=== PATIENT | male | born 1965 | race Caucasian/White ===

== ENCOUNTER → 2019-11-25 14:39 | Outpatient (BNVA) | payer MEDICARE, MEDICAID, SELFPAY | PROVIDERS: Family Provider Family Medicine; PCP Family Medicine; Visit Provider Nurse Practitioner Psychiatric/Mental Health | DX: F31.74 Bipolar disorder, in full remission, most recent episode manic (principal); F15.21 Other stimulant dependence, in remission | CPT/HCPCS: 99214; 99215 ==

== ENCOUNTER → 2020-01-23 08:21 | Outpatient (BNVA) | payer MEDICARE, MEDICAID, SELFPAY | PROVIDERS: Family Provider Family Medicine; PCP Family Medicine; Visit Provider Specialist | DX: G43.711 Chronic migraine without aura, intractable, with status migrainosus (principal); G40.309 Generalized idiopathic epilepsy and epileptic syndromes, not intractable, without status epilepticus; Z87.891 Personal history of nicotine dependence | CPT/HCPCS: 64615; 99213; J0585 ==

== ENCOUNTER → 2020-02-17 08:15 | Outpatient (BNVA) | payer MEDICARE, MEDICAID, SELFPAY | PROVIDERS: Family Provider Family Medicine; PCP Family Medicine; Visit Provider Nurse Practitioner Psychiatric/Mental Health | DX: G40.309 Generalized idiopathic epilepsy and epileptic syndromes, not intractable, without status epilepticus (principal); F31.74 Bipolar disorder, in full remission, most recent episode manic | CPT/HCPCS: 99213 ==

== ENCOUNTER → 2020-04-13 07:55 | Outpatient (BNVA) | payer MEDICARE, MEDICAID, SELFPAY | PROVIDERS: Family Provider Family Medicine; PCP Family Medicine; Visit Provider Nurse Practitioner Psychiatric/Mental Health | DX: F31.74 Bipolar disorder, in full remission, most recent episode manic (principal); G40.309 Generalized idiopathic epilepsy and epileptic syndromes, not intractable, without status epilepticus | CPT/HCPCS: 99212 ==

== ENCOUNTER → 2020-04-16 07:40 | Outpatient (BNVA) | payer MEDICARE, MEDICAID, SELFPAY | PROVIDERS: Family Provider Family Medicine; PCP Family Medicine; Visit Provider Specialist | DX: G43.711 Chronic migraine without aura, intractable, with status migrainosus (principal); G40.309 Generalized idiopathic epilepsy and epileptic syndromes, not intractable, without status epilepticus; G25.0 Essential tremor; Z87.891 Personal history of nicotine dependence | CPT/HCPCS: 36415; 64615; 80164; 99214; J0585 ==

== ENCOUNTER 2020-04-16 09:05 | Outpatient (CLI) | payer MEDICARE, MEDICAID, SELFPAY ==
[2020-04-16 10:12] LABS: Valproic Acid Level 90.8 mcg/mL (50-100)
== END 2020-04-16 09:06 | disposition home or self-care (01) ==
LOC: LAB 09:10
PROVIDERS: PCP Family Medicine; Visit Provider Specialist
DX: G40.309 Generalized idiopathic epilepsy and epileptic syndromes, not intractable, without status epilepticus (principal)
CPT/HCPCS: 36415; 80164

== ENCOUNTER → 2020-06-15 08:43 | Outpatient (BNVA) | payer MEDICARE, MEDICAID, SELFPAY | PROVIDERS: PCP Family Medicine; Visit Provider Nurse Practitioner Psychiatric/Mental Health | DX: F31.74 Bipolar disorder, in full remission, most recent episode manic (principal); G40.309 Generalized idiopathic epilepsy and epileptic syndromes, not intractable, without status epilepticus; G25.0 Essential tremor | CPT/HCPCS: 99212 ==

== ENCOUNTER → 2020-09-14 07:45 | Outpatient (BNVA) | payer MEDICARE, MEDICAID, SELFPAY | PROVIDERS: PCP Family Medicine; Visit Provider Nurse Practitioner Psychiatric/Mental Health | DX: F31.74 Bipolar disorder, in full remission, most recent episode manic (principal); G25.0 Essential tremor; G40.309 Generalized idiopathic epilepsy and epileptic syndromes, not intractable, without status epilepticus | CPT/HCPCS: 99212 ==

== ENCOUNTER → 2020-12-15 09:58 | Outpatient (BNVA) | payer MEDICARE, MEDICAID, SELFPAY | PROVIDERS: PCP Family Medicine; Visit Provider Nurse Practitioner Psychiatric/Mental Health | DX: F31.74 Bipolar disorder, in full remission, most recent episode manic (principal); G25.0 Essential tremor; G40.309 Generalized idiopathic epilepsy and epileptic syndromes, not intractable, without status epilepticus; Z79.899 Other long term (current) drug therapy | CPT/HCPCS: 99213 ==

== ENCOUNTER → 2020-12-22 14:06 | Outpatient (BNVA) | payer MEDICARE, MEDICAID, SELFPAY | PROVIDERS: PCP Family Medicine; Visit Provider Nurse Practitioner Psychiatric/Mental Health | DX: Z79.899 Other long term (current) drug therapy (principal) | CPT/HCPCS: 80061; 83036 ==

== ENCOUNTER → 2021-03-09 08:34 | Outpatient (BNVA) | payer MEDICARE, MEDICAID, SELFPAY | PROVIDERS: PCP Family Medicine; Visit Provider Nurse Practitioner Psychiatric/Mental Health | DX: F31.74 Bipolar disorder, in full remission, most recent episode manic (principal); G25.0 Essential tremor; G40.309 Generalized idiopathic epilepsy and epileptic syndromes, not intractable, without status epilepticus | CPT/HCPCS: 99213 ==

== ENCOUNTER → 2021-06-01 07:23 | Outpatient (BNVA) | payer MEDICARE, MEDICAID, SELFPAY | PROVIDERS: PCP Family Medicine; Visit Provider Nurse Practitioner Psychiatric/Mental Health | DX: F31.74 Bipolar disorder, in full remission, most recent episode manic (principal); G25.0 Essential tremor; G40.309 Generalized idiopathic epilepsy and epileptic syndromes, not intractable, without status epilepticus | CPT/HCPCS: 99213 ==

== ENCOUNTER → 2021-06-21 11:56 | Outpatient (BNVA) | payer MEDICARE, MEDICAID, SELFPAY | PROVIDERS: PCP Family Medicine; Visit Provider Specialist | DX: G40.309 Generalized idiopathic epilepsy and epileptic syndromes, not intractable, without status epilepticus (principal); F20.9 Schizophrenia, unspecified; R25.1 Tremor, unspecified | CPT/HCPCS: 99214 ==

== ENCOUNTER → 2021-08-26 07:09 | Outpatient (BNVA) | payer MEDICARE, MEDICAID, SELFPAY | PROVIDERS: PCP Family Medicine; Visit Provider Nurse Practitioner Psychiatric/Mental Health | DX: F31.74 Bipolar disorder, in full remission, most recent episode manic (principal); G25.0 Essential tremor; G40.309 Generalized idiopathic epilepsy and epileptic syndromes, not intractable, without status epilepticus; Z79.899 Other long term (current) drug therapy | CPT/HCPCS: 99213 ==

== ENCOUNTER → 2021-11-22 14:31 | Outpatient (BNVA) | payer MEDICARE, MEDICAID, SELFPAY | PROVIDERS: PCP Family Medicine; Visit Provider Nurse Practitioner Psychiatric/Mental Health | DX: F31.74 Bipolar disorder, in full remission, most recent episode manic (principal); G25.0 Essential tremor; G40.309 Generalized idiopathic epilepsy and epileptic syndromes, not intractable, without status epilepticus | CPT/HCPCS: 99213 ==

== ENCOUNTER 2021-11-24 15:16 | Emergency (ER) | payer MEDICARE, MEDICAID, SELFPAY ==
[2021-11-24 15:34] VITALS: BP 200/111; PULSE 85; RESP 18; TEMP 36.9; O2SAT 98; BMI 36.3
[2021-11-24 15:56] VITALS: BP 200/111
[2021-11-24] MEDS: cloNIDine 0.1 mg Tablet 0.2 MG PO (15:56)
--- NOTE | 2021-11-24 16:03 | ED_ITS ---
Documented by User: KIRSTEN Tesfaye 11/25/21 09:34 HPI - General Adult General: Chief complaint: General Medical Stated complaint: HIGH BP Time Seen by Provider: 11/24/21 15:55 History of Present Illness: HPI narrative: he presents with high blood pressure readings. Patient has not been to his primary in a while he does take metoprolol for blood pressure control. Patient's had high blood pressure for the last couple years without any change in medication. Patient denies any current symptoms besides high blood pressure readings. Decided come to ER today and see about getting blood pressure under control. Onset (ago): year(s) Associated symptoms: Reports no associated symptoms; Deny chest pain, dyspnea, headache(s), nausea, rash or vomiting Review of Systems Const: Denies: fever(s), chills or body aches Eyes: Denies: change in vision or blurry vision ENMT: Denies: throat pain or nasal congestion Card: Denies: chest pain or dyspnea on exertion Resp: Denies: dyspnea, productive cough or non-productive cough GI: Denies: abdominal pain, nausea or vomiting : Denies: difficulty urinating Musc: Denies: extremity pain Skin/Breast: Denies: rash Neuro: Denies: headache(s) Psych: Denies: anxiety or depression Hever/Lymph: Denies: easy bruising PFS ED PFSH: Medical History (Updated 11/24/21 @ 16:06 by KIRSTEN Tesfaye) Psychiatric care Social History Smoking and tobacco status: never smoked Quit status (tobacco): has quit using tobacco Year quit tobacco: 10 years Second hand smoke exposure: No Smoking risk assessment/counseling performed?: No Reason smoking risk assessment not done: other Physical Exam Const: COMMON NORMALS: no acute distress, average body habitus and patient oriented x3 HENMT: COMMON NORMALS: normocephalic HEAD & SCALP: normal to inspection and normocephalic FACE & SINUS: normal facial exam Eye: COMMON NORMALS: conjunctivae normal GENERAL EYE: appearance normal, both eyes and all related structures CONJUNCTIVA: Yes conjunctivae normal Neck/C-Spine: COMMON NORMALS: no JVD Chest: COMMONS NORMALS: normal inspection of the chest Resp: COMMON NORMALS: normal respiratory effort and clear to auscultation bilaterally AUSCULTATION: clear to auscultation bilaterally Cardio: COMMON NORMALS: no JVD, regular rate and regular rhythm RATE: regular rate RHYTHM: regular rhythm GI: COMMON NORMALS: Normal to inspection, nondistended, normoactive bowel sounds present Extremity: COMMON NORMALS: normal to inspection and full ROM Neuro: COMMON NORMALS: patient oriented x3 Course Vital Signs: Vital signs: Vital Signs Temperature 98.7 F 11/24/21 17:57 Pulse Rate 81 11/24/21 17:57 Respiratory Rate 18 11/24/21 17:57 Blood Pressure 154/99 11/24/21 17:57 Pulse Oximetry 99 11/24/21 17:57 MDM - General Adult MDM Narrative: Medical decision making narrative: Patient presents with hypertension. Patient has been having high blood pressure and readings for the last couple years. There is been no change in his dosage of his medication. Patient name familiar with what he took but it happens to be metoprolol. He also takes propanolol for his migraines. Patient was given clonidine here in the ER and had good response. Patient was prescribed Micardis and asked to follow-up with his primary care provider also record his readings for couple weeks and present those to primary care provider return here if any worsening symptoms. Discharge Plan Discharge Patient Disposition: Home Clinical Impression: Hypertension Qualifiers: Hypertension type: primary hypertension Qualified Code(s): I10 - Essential (primary) hypertension Condition: Stable Prescriptions: New Micardis 40 mg tablet 40 mg PO DAILY Qty: 20 RF: 0 No Action metoprolol tartrate 50 mg tablet 50 mg PO BID RF: 0 simvastatin 20 mg tablet 20 mg PO .QHS RF: 0 albuterol sulfate 90 mcg/actuation aero powdr breath act w/sensor 2 inh inhalation QID RF: 0 Eliquis 5 mg tablet 5 mg PO BID RF: 0 fluticasone propionate 110 mcg/actuation HFA aerosol inhaler 2 puff inhalation BID RF: 0 pantoprazole 40 mg tablet,delayed release (DR/EC) 40 mg PO DAILY RF: 0 divalproex 500 mg tablet,delayed release (DR/EC) See Rx Instructions .ROUTE .COMPLEX Qty: 270 RF: 3 primidone 50 mg tablet 50 mg PO BID Qty: 180 RF: 3 olanzapine [Zyprexa] 10 mg tablet 10 mg PO .qhs Qty: 30 RF: 2 olanzapine 20 mg tablet 20 mg PO .q hs Qty: 30 RF: 2 eszopiclone [Lunesta] 1 mg tablet 1 mg PO .HS PRN (Reason: insomnia) Qty: 30 RF: 2 sumatriptan succinate 100 mg tablet 100 mg PO Q2H PRN (Reason: migraine headache) Qty: 9 RF: 4 zonisamide 100 mg capsule See Rx Instructions .ROUTE .COMPLEX Qty: 120 RF: 3 trazodone 100 mg tablet 200 mg PO .HS PRN (Reason: insomnia) Qty: 60 RF: 2 Discharge Orders: Discharge ED (Routine); Ordered 11/24/21 Ordered By: Howard Oviedo Referrals: Zoie Steele FNP [Primary Care Provider] - Discharge Diet: Usual diet Discharge Activity: Resume usual activity Patient Instructions: Chronic Hypertension (ED) Activity Restrictions/Additional Instructions: Follow-up with medical provider as directed. Take medications as prescribed. Return to the ER or your medical provider if condition worsens. Please read and understand discharge instructions. If any questions ask please. Check blood pressure twice a day write those readings down and then follow-up with KIRSTEN Long in a couple weeks and present those readings to her for evaluation of current medications and if she wants to continue prescription or make a change. Coding Level of Care Code ED Environmental Health Safety Manager for Chg Fwd Exam Comprehensive Documented by User: Ammon Broderick DO 11/27/21 06:20 HPI - General Adult General: Chief complaint: General Medical Stated complaint: HIGH BP Time Seen by Provider: 11/24/21 15:55 PFSH ED PFSH: Medical History (Updated 11/24/21 @ 16:06 by KIRSTEN Tesfaye) Psychiatric care Social History Smoking and tobacco status: never smoked Quit status (tobacco): has quit using tobacco Year quit tobacco: 10 years Second hand smoke exposure: No Smoking risk assessment/counseling performed?: No Reason smoking risk assessment not done: other Course Vital Signs: Vital signs: Vital Signs Temperature 98.7 F 11/24/21 17:57 Pulse Rate 81 11/24/21 17:57 Respiratory Rate 18 11/24/21 17:57 Blood Pressure 154/99 11/24/21 17:57 Pulse Oximetry 99 11/24/21 17:57 MDM - General Adult MDM Narrative: Medical decision making narrative: Chart reviewed and patient discussed with midlevel. Agree with assessment and plan. Discharge Plan Discharge Patient Disposition: Home Clinical Impression: Hypertension Qualifiers: Hypertension type: primary hypertension Qualified Code(s): I10 - Essential (primary) hypertension Condition: Stable Prescriptions: New Micardis 40 mg tablet 40 mg PO DAILY Qty: 20 RF: 0 No Action metoprolol tartrate 50 mg tablet 50 mg PO BID RF: 0 simvastatin 20 mg tablet 20 mg PO .QHS RF: 0 albuterol sulfate 90 mcg/actuation aero powdr breath act w/sensor 2 inh inhalation QID RF: 0 Eliquis 5 mg tablet 5 mg PO BID RF: 0 fluticasone propionate 110 mcg/actuation HFA aerosol inhaler 2 puff inhalation BID RF: 0 pantoprazole 40 mg tablet,delayed release (DR/EC) 40 mg PO DAILY RF: 0 divalproex 500 mg tablet,delayed release (DR/EC) See Rx Instructions .ROUTE .COMPLEX Qty: 270 RF: 3 primidone 50 mg tablet 50 mg PO BID Qty: 180 RF: 3 olanzapine [Zyprexa] 10 mg tablet 10 mg PO .qhs Qty: 30 RF: 2 olanzapine 20 mg tablet 20 mg PO .q hs Qty: 30 RF: 2 eszopiclone [Lunesta] 1 mg tablet 1 mg PO .HS PRN (Reason: insomnia) Qty: 30 RF: 2 sumatriptan succinate 100 mg tablet 100 mg PO Q2H PRN (Reason: migraine headache) Qty: 9 RF: 4 zonisamide 100 mg capsule See Rx Instructions .ROUTE .COMPLEX Qty: 120 RF: 3 trazodone 100 mg tablet 200 mg PO .HS PRN (Reason: insomnia) Qty: 60 RF: 2 Discharge Orders: Discharge ED (Routine); Ordered 11/24/21 Ordered By: Howard Oviedo Referrals: Zoie Steele FNP [Primary Care Provider] - Discharge Diet: Usual diet Discharge Activity: Resume usual activity Patient Instructions: Chronic Hypertension (ED) Activity Restrictions/Additional Instructions: Follow-up with medical provider as directed. Take medications as prescribed. Return to the ER or your medical provider if condition worsens. Please read and understand discharge instructions. If any questions ask please. Check blood pressure twice a day write those readings down and then follow-up with KIRSTEN Long in a couple weeks and present those readings to her for evaluation of current medications and if she wants to continue prescription or make a change. Coding Level of Care Code ED Environmental Health Safety Manager for Chg Fwd Exam Comprehensive
[2021-11-24 16:29] VITALS: BP 157/97; PULSE 80; RESP 18; O2SAT 98
[2021-11-24 17:57] VITALS: BP 154/99; PULSE 81; RESP 18; TEMP 37.1; O2SAT 99
== END 2021-11-24 18:00 | disposition home or self-care (01) ==
PROVIDERS: Emergency Provider Nurse Practitioner Family; PCP Nurse Practitioner Family
DX: I10 Essential (primary) hypertension (principal); Z79.01 Long term (current) use of anticoagulants; Z87.891 Personal history of nicotine dependence
CPT/HCPCS: 99283

== ENCOUNTER → 2021-12-20 09:53 | Outpatient (BNVA) | payer MEDICARE, MEDICAID, SELFPAY | PROVIDERS: PCP Nurse Practitioner Family; Visit Provider Specialist | DX: G25.0 Essential tremor (principal); G40.309 Generalized idiopathic epilepsy and epileptic syndromes, not intractable, without status epilepticus; F31.74 Bipolar disorder, in full remission, most recent episode manic; I10 Essential (primary) hypertension | CPT/HCPCS: 99213; 99214 ==

== ENCOUNTER → 2022-02-14 14:15 | Outpatient (BNVA) | payer MEDICARE, MEDICAID, SELFPAY | PROVIDERS: PCP Nurse Practitioner Family; Visit Provider Nurse Practitioner Psychiatric/Mental Health | DX: F31.74 Bipolar disorder, in full remission, most recent episode manic (principal); G25.0 Essential tremor; G40.309 Generalized idiopathic epilepsy and epileptic syndromes, not intractable, without status epilepticus | CPT/HCPCS: 99213 ==

== ENCOUNTER → 2022-06-13 08:28 | Outpatient (BNVA) | payer MEDICARE, MEDICAID, SELFPAY | PROVIDERS: PCP Nurse Practitioner Family; Visit Provider Specialist | DX: I10 Essential (primary) hypertension (principal); J45.909 Unspecified asthma, uncomplicated; F15.11 Other stimulant abuse, in remission; G40.309 Generalized idiopathic epilepsy and epileptic syndromes, not intractable, without status epilepticus; G25.0 Essential tremor | CPT/HCPCS: 99213; 99214 ==

== ENCOUNTER → 2022-09-13 14:41 | Outpatient (BNVA) | payer MEDICARE, MEDICAID, OTHER, SELFPAY | PROVIDERS: PCP Nurse Practitioner Family; Visit Provider Nurse Practitioner Psychiatric/Mental Health | DX: Z79.899 Other long term (current) drug therapy (principal) | CPT/HCPCS: 80053; 80061; 83036 ==

== ENCOUNTER 2023-05-25 14:28 | Inpatient (IN) | payer MEDICARE, MEDICAID, SELFPAY ==
[2023-05-25] VITALS (9 sets, daily range): BP systolic 121–188; BP diastolic 72–100; PULSE 85–105; RESP 16–30; TEMP 37.7–39.5; O2SAT 90–98
[2023-05-25 14:55] LABS: Glucose Point of Care 117 mg/dL (70-110)
--- NOTE | 2023-05-25 15:00 | W.ED.WEAKNES ---
HPI - Weakness General: Chief complaint: Weakness Stated complaint: heat exhaustion Time Seen by Provider: 05/25/23 14:31 History of Present Illness: 57 years old male with history of mental sedation and chronic resting tremor was brought into emergency room by EMS because of weakness. According to the patient dad, patient went outside the house for about 15 to 20 minutes and upon returning back into the house he became very diaphoretic and complained of weakness patient denies any cough, headache, neck pain, abdominal pain, nausea or vomiting at this time. No recent foreign travel or sick contacts. Upon present emergency room patient was found to be tachycardic and febrile. Associated symptoms: Reports diaphoresis; Denies dysuria Review of Systems General: Reports: 10 or more systems reviewed and unremarkable except in HPI and below Const: Reports: fatigue and diaphoresis Resp: Denies: dyspnea, productive cough, non-productive cough, wheezing, stridor, pain on inspiration or change in phlegm color : Denies: flank pain, difficulty urinating, dysuria, urinary frequency, urinary urgency, urinary hesitancy, urinary dribbling, difficulty starting urination or change in urine stream Musc: Denies: neck pain, back pain, extremity pain, extremity swelling, joint pain, joint swelling, joint redness or joint warmth PFSH ED PFSH: Medical History Psychiatric care Social History (Updated 09/13/22 @ 13:45 by Erica Hayden) Smoking and tobacco status: never smoked Quit status (tobacco): has quit using tobacco Year quit tobacco: 10 years Second hand smoke exposure: No Smoking risk assessment/counseling performed?: No Reason smoking risk assessment not done: other Alcohol intake: never Desire information about alcohol rehabilitation?: No Counseling given: No Physical Exam Const: EXAM LIMITATIONS: behavioral limitations; no physical limitations GENERAL APPEARANCE: cooperative, comfortable, well kempt and other (Resting tremor noted); not disheveled and not lethargic ORIENTATION/CONSCIOUSNESS: not lethargic HENMT: COMMON NORMALS: normocephalic, atraumatic, hearing grossly normal bilaterally, external ears normal, EAC's normal, TM's normal bilaterally, Normal external nose present, Normal nasal mucous membranes and turbinates present, moist oral mucous membranes, oropharynx normal, dentition normal and gingiva normal HEAD & SCALP: normocephalic and atraumatic NOSE: Normal external nose present and Normal nasal mucous membranes and turbinates present EXTERNAL EAR: Yes external ears normal EXTERNAL AUDITORY CANAL: EAC's normal TYMPANIC MEMBRANE: TM's normal bilaterally THROAT: posterior oropharynx normal; tonsils not normal and uvula not midline Eye: COMMON NORMALS: Equal, round and reactive pupils present, EOMs intact bilaterally, conjunctivae normal, no scleral icterus, no papilledema, normal visual blount by confrontation and fundi normal bilaterally CONJUNCTIVA: Yes conjunctivae normal PUPIL: Yes Equal, round and reactive pupils present DIRECT OPHTHALMOSCOPY: Yes no papilledema and Yes fundi normal bilaterally Resp: COMMON NORMALS: normal respiratory effort, No retractions, No use of accessory muscles, clear to auscultation bilaterally and percussion normal AUSCULTATION: clear to auscultation bilaterally PERCUSSION: percussion normal Neuro: SENSORIUM/ORIENTATION: No lethargic Psych: APPEARANCE: Yes well kempt Course Consultations: Consultation #1: Discussed patient with the hospitalist. Accepted for observation. Vital Signs: Vital signs: Vital Signs Temperature 101.7 F H 05/25/23 19:49 Pulse Rate 102 H 05/25/23 20:14 Respiratory Rate 16 05/25/23 20:14 Blood Pressure 133/80 05/25/23 20:14 Pulse Oximetry 97 05/25/23 20:14 Oxygen Delivery Me thod Nasal Cannula 05/25/23 20:14 Oxygen Flow Rate 2 05/25/23 20:14 MDM - Weakness Medical Decision Making Patient made comfortable emergency room. Patient had extensive work-up including blood culture, lactic acid. Patient was given IV fluids. Paulo patient with the hospitalist. Will admit for observation. Differential Diagnosis Likely acute myocardial infarction, anemia, hypoglycemia, hypothyroidism, rhabdomyolysis, sepsis and dehydration Lab Data 05/25/23 14:50 05/25/23 14:50 Radiology Impressions Chest X-Ray 05/25/23 15:03 Impression: Negative chest. Laboratory Results WBC 11.9 10^3/uL (4.0-10.0) H 05/25/23 14:50 RBC 4.63 10^6/uL (4.1-5.3) 05/25/23 14:50 Hgb 14.0 g/dL (11.7-16.6) 05/25/23 14:50 Hct 44.2 % (42.0-52.0) 05/25/23 14:50 MCV 95.5 fl (80-94) H 05/25/23 14:50 MCH 30.2 pg (28.0-34.0) 05/25/23 14:50 MCHC 31.7 g/dL (30.0-36.0) 05/25/23 14:50 RDW 14.5 % (12.1-15.1) 05/25/23 14:50 Plt Count 260 10^3/cmm (130-400) 05/25/23 14:50 MPV 9.9 fL (7.4-10.4) 05/25/23 14:50 Neut % (Auto) 68.3 % 05/25/23 14:50 Lymph % (Auto) 15.3 % 05/25/23 14:50 [place] % (Auto) 13.1 % 05/25/23 14:50 Eos % (Auto) 2.5 % 05/25/23 14:50 Baso % (Auto) 0.3 % 05/25/23 14:50 Neut # (Auto) 8.10 10^3/uL (1.8-7.7) H 05/25/23 14:50 Lymph # (Auto) 1.8 10^3/uL (0.8-4.8) 05/25/23 14:50 [place] # (Auto) 1.6 10^3/uL (0.2-0.9) H 05/25/23 14:50 Eos # (Auto) 0.3 10^3/uL (0.0-0.8) 05/25/23 14:50 Baso # (Auto) 0.0 10^3/uL (0.0-0.1) 05/25/23 14:50 Nucleated RBC % (auto) 0 % 05/25/23 14:50 Nucleated RBCs # 0.0 /100WBC 05/25/23 14:50 Sodium 136 mmol/L (136-145) 05/25/23 14:50 Potassium 4.9 mmol/L (3.5-5.1) 05/25/23 14:50 Chloride 99 mmol/L (98-107) 05/25/23 14:50 Carbon Dioxide 22 mmol/L (22-29) 05/25/23 14:50 Anion Gap 19.9 (5-19) H 05/25/23 14:50 BUN 15 mg/dL (6-20) 05/25/23 14:50 Creatinine 1.8 mg/dL (0.7-1.2) H 05/25/23 14:50 GFR Calculation 38.9 mL/min (90-130) L 05/25/23 14:50 Glucose 106 mg/dL (65-115) 05/25/23 14:50 POC Glucose 117 mg/dL (70-110) H 05/25/23 14:46 Calculated Osmolality 283 mOsm/kg (285-295) L 05/25/23 14:50 Lactic Acid 2.4 mmol/L (0.5-2.2) H 05/25/23 15:26 Lactic Acid (Sepsis) 1.8 mmol/L (0.5-2.2) 05/25/23 18:41 Calcium 9.5 mg/dL (8.5-10.5) 05/25/23 14:50 Total Bilirubin 0.4 mg/dL (0.15-1.2) 05/25/23 14:50 AST 22 U/L (0-40) 05/25/23 14:50 ALT 13 U/L (0-41) 05/25/23 14:50 Alkaline Phosphatase 85 U/L (40-130) 05/25/23 14:50 Creatine Kinase 92 U/L (39-308) 05/25/23 14:50 CK-MB (CK-2) 1.3 ng/mL (0-10.4) 05/25/23 14:50 CK-MB (CK-2) Rel Index % (0.0-5.3) 05/25/23 14:50 Total Protein 6.6 g/dL (6.6-8.7) 05/25/23 14:50 Albumin 4.3 g/dL (3.5-5.2) 05/25/23 14:50 Globulin 2.3 g/dL (1.3-4.6) 05/25/23 14:50 Urine Color Yellow (Yellow) 05/25/23 16:24 Urine Appearance Clear (CLEAR) 05/25/23 16:24 Urine pH 8 (5-7) H 05/25/23 16:24 Ur Specific [place] 1.010 (1.005-1.030) 05/25/23 16:24 Urine Protein Neg (Negative) 05/25/23 16:24 Urine Glucose (UA) Norm (Normal) 05/25/23 16:24 Urine Ketones Negative (Negative) 05/25/23 16:24 Urine Blood Neg (Negative) 05/25/23 16:24 Urine Nitrate Negative (Negative) 05/25/23 16:24 Urine Bilirubin Neg (Negative) 05/25/23 16:24 Prot Sulfosalicylic Acd Negative (Negative) 05/25/23 16:24 Urine Urobilinogen Norm mg/dL (Negative) 05/25/23 16:24 Ur Leukocyte Esterase Negative (Negative) 05/25/23 16:24 Ethyl Alcohol < 10 mg/dL (0-10) 05/25/23 14:50 Discharge Plan Discharge Patient Disposition: Placed in Observation Admit Provider: Jazmine Diaz Clinical Impression: Fever, Atrial tachycardia Coding Level of Care Code ED Delivery Specialist for Chg Panfilo
--- NOTE | 2023-05-25 15:03 | XR_ITS ---
WS: [id number] Portable AP upright chest, portable today Clinical Data: Fever Comparison: PA and lateral chest, 09/08/2014. Findings: No nodules, masses or effusions are seen. The heart is normal. The pulmonary vascularity is not increased. No pneumonia or pneumothorax is seen. There are monitor leads on the chest wall. XR/XR chest 1V portable [id number] Impression: Negative chest.
[2023-05-25 15:16] LABS: Basophils % 0.3 %; Eosinophils # 0.3 10^3/uL (0.0-0.8); Eosinophils % 2.5 %; Hematocrit 44.2 % (42.0-52.0); Lymphocytes # 1.8 10^3/uL (0.8-4.8); Lymphocytes % 15.3 %; Mean Corpuscular HGB Conc 31.7 g/dL (30.0-36.0); Mean Corpuscular Hemoglobin 30.2 pg (28.0-34.0); Mean Corpuscular Volume 95.5 fl (80-94); Mean Platelet Volume 9.9 fL (7.4-10.4); Monocytes # 1.6 10^3/uL (0.2-0.9); Monocytes % 13.1 %; Neutrophils % 68.3 %; Nucleated Red Blood Cells % 0 %; Platelet Count 260 10^3/cmm (130-400); Red Blood Count 4.63 10^6/uL (4.1-5.3); Red Cell Distribution Width 14.5 % (12.1-15.1); White Blood Count 11.9 10^3/uL (4.0-10.0)
[2023-05-25 15:38] LABS: Alanine Aminotransferase 13 U/L (0-41); Albumin Level 4.3 g/dL (3.5-5.2); Alkaline Phosphatase 85 U/L (40-130); Anion Gap 19.9 (5-19); Aspartate Amino Transferase 22 U/L (0-40); Blood Urea Nitrogen 15 mg/dL (6-20); Calcium 9.5 mg/dL (8.5-10.5); Carbon Dioxide 22 mmol/L (22-29); Chloride 99 mmol/L (98-107); Globulin 2.3 g/dL (1.3-4.6); Glomerular Filtration Rate 38.9 mL/min (90-130); Glucose 106 mg/dL (65-115); Osmolality Calculated 283 mOsm/kg (285-295); Potassium 4.9 mmol/L (3.5-5.1); Sodium 136 mmol/L (136-145); Total Bilirubin 0.4 mg/dL (0.15-1.2); Total Protein 6.6 g/dL (6.6-8.7)
[2023-05-25 15:40] LABS: CKMB 1.3 ng/mL (0-10.4)
[2023-05-25] MEDS: sodium chloride 0.9% 1,000 ML 999 ML IV ×3 (15:42→19:44)
[2023-05-25 15:43] LABS: Alcohol Level < 10 mg/dL (0-10)
[2023-05-25 15:51] LABS: Creatine Phosphokinase 92 U/L (39-308)
[2023-05-25 16:03] LABS: Lactic Sepsis W/Reflex 2.4 mmol/L (0.5-2.2)
[2023-05-25 16:51] LABS: Add Urine Microscopic? NO; Charge for UA Resulting for Rev
[2023-05-25 17:16] LABS: Bilirubin Urine Neg (Negative); Blood Urine Neg (Negative); Glucose Urine UA Norm (Normal); Ketones Urine Negative (Negative); Leukocyte Esterase Urine Negative (Negative); Nitrate Urine Negative (Negative); Protein Urine Neg (Negative); Sulfosalicylic Acid Urine Negative (Negative); Urine Appearance Clear (CLEAR); Urine Color Yellow (Yellow); Urobilinogen Urine Norm (Negative); pH Urine 8 (5-7)
[2023-05-25 17:28] LABS: Reflex Lactate Order REFLEX LACTIC ORDERD
[2023-05-25 19:01] LABS: Lactic Acid level (Lactate) 1.8 mmol/L (0.5-2.2)
[2023-05-25] MEDS: piperacillin-tazobactam 3.375 GM in sodium chloride 0.9% (plus) 50 ML IV (19:40)
[2023-05-25] MEDS: vancomycin 2,000 MG/400 ML PIGGYBACK 200 MG IV (19:45)
[2023-05-25] MEDS: ketorolac 30 mg/mL INJ IVP (20:10)
[2023-05-25 22:09] LABS: Adenovirus Not Detected (NOT DETECT); Chlamydia Pneumoniae Not Detected (NOT DETECT); Coronavirus 229E,HKU1,NL63,OC4 Not Detected (NOT DETECT); Human Metapneumovirus Not Detected (NOT DETECT); Human Rhinovirus/Enterovirus Not Detected (NOT DETECT); Influenza A Not Detected (NOT DETECT); Influenza A H1 Not Detected (NOT DETECT); Influenza A H1-2009 Not Detected (NOT DETECT); Influenza A H3 Not Detected (NOT DETECT); Influenza B Not Detected (NOT DETECT); Mycoplasma Pneumoniae Not Detected (NOT DETECT); Parainfluenza Virus Type 1 Not Detected (NOT DETECT); Parainfluenza Virus Type 2 Not Detected (NOT DETECT); Parainfluenza Virus Type 3 Not Detected (NOT DETECT); Parainfluenza Virus Type 4 Not Detected (NOT DETECT); Respiratory Syncytial Virus A Not Detected (NOT DETECT); Respiratory Syncytial Virus B Not Detected (NOT DETECT); SARS-COV-2 Not Detected (NOT DETECT)
[2023-05-25] MEDS: sodium chloride 0.9% 1,000 ML 100 ML IV (22:22)
[2023-05-26] VITALS (13 sets, daily range): BP systolic 125–159; BP diastolic 78–93; PULSE 66–101; RESP 12–20; TEMP 37.1–39.3; O2SAT 91–96
[2023-05-26] MEDS: ketorolac 30 mg/mL INJ IVP (02:46)
--- NOTE | 2023-05-26 04:24 | PM.HP ---
Providers/Chief Complaint Admitting Physician: Jazmine Diaz MD Primary Care Provider: KIRSTEN Duong Chief Complaint: heat exhaustion History of Present Illness Jamal Lama is a 58 year old male with PMH epilepsy, tremor brought to the emergency room today by his family. Family reported to the ER physician that patient suddenly became very diaphoretic, febrile, has been generalized weak and dizzy. Family is currently not available for interview. Patient states that he has been unwell over the past 3 days. He is only able to tell me that the heat got to him and that he has been feeling hot and cold, has had chills. Denies any fevers of upper respiratory infection, runny nose, cough, nausea vomiting diarrhea. Denies any recent rashes or tick bites. Denies any urinary symptoms. In the ER he was noted to have a fever of 103 Fahrenheit, he was dehydrated, tachycardic with an elevated lactate. He is wheezing at the time of my assessment currently. Review of Systems General: Reports: 10 or more systems reviewed and unremarkable except in HPI and below Const: Denies: fever(s), chills or body aches Eyes: Denies: change in vision, blurry vision or photophobia ENMT: Reports: hoarseness; Denies: throat pain, enlarged tonsils, odynophagia or nasal congestion Card: Denies: chest pain, palpitations, irregular heart rhythm, edema, swelling of feet/ankles, lightheadedness, pre-syncope, dyspnea on exertion or orthopnea Resp: Denies: dyspnea, productive cough, non-productive cough, wheezing, stridor, pain on inspiration, change in phlegm color, hemoptysis or chest congestion GI: Denies: abdominal pain, nausea, vomiting, hematemesis, coffee ground emesis, dysphagia, heartburn, diarrhea, constipation, GI cramping, change in stool character, hematochezia or melena : Denies: flank pain, dysuria, urinary frequency, urinary urgency, urinary hesitancy or hematuria Musc: Denies: neck pain, back pain, extremity pain, joint swelling, joint warmth or deformity Neuro: Denies: headache(s), numbness in extremities, weakness in extremities, sensory changes, difficulty walking, frequent falls, dizziness, vertigo, behavioral changes, Slurred speech present or seizure-like activity Psych: Denies: anxiety, depression, suicidal ideation or homicidal ideation Endo: Denies: polyuria, polydipsia, tired all the time, cold intolerance or hot flashes Hever/Lymph: Denies: easy bruising or easy bleeding Medications/Allergies Home Medications Medication Instructions Recorded Confirmed Last Taken Type metoprolol tartrate 50 mg tablet 50 mg PO BID 11/25/19 04/24/23 Unknown History simvastatin 20 mg tablet 20 mg PO .QHS 11/25/19 04/24/23 Unknown History sumatriptan succinate 100 mg tablet 100 mg PO Q2H PRN migraine 03/30/20 04/24/23 Unknown Rx headache #9 tabs albuterol sulfate 90 mcg/actuation 2 inh inhalation QID 06/21/21 04/24/23 Unknown History breath activated powder inhaler,sensor apixaban 5 mg tablet (Eliquis) 5 mg PO BID 06/21/21 04/24/23 Unknown History fluticasone propionate 110 2 puff inhalation BID 06/21/21 04/24/23 Unknown History mcg/actuation HFA aerosol inhaler pantoprazole 40 mg tablet,delayed 40 mg PO DAILY 06/21/21 04/24/23 Unknown History release telmisartan 40 mg tablet (Micardis) 40 mg PO DAILY #20 tabs 11/24/21 04/24/23 Unknown Rx benzonatate 200 mg capsule 200 mg PO BID PRN cough #20 caps 01/09/23 04/24/23 Unknown Rx loratadine 10 mg tablet 10 mg PO DAILY #30 tabs 01/09/23 04/24/23 Unknown Rx eszopiclone 1 mg tablet (Lunesta) 1 mg PO .HS PRN insomnia #30 tabs 04/24/23 04/24/23 Unknown Rx olanzapine 10 mg tablet (Zyprexa) 10 mg PO .qhs #30 tabs 04/24/23 04/24/23 Unknown Rx olanzapine 20 mg tablet 20 mg PO .q hs #30 tabs 04/24/23 04/24/23 Unknown Rx trazodone 100 mg tablet 100 mg PO .q hs PRN insomnia #30 04/24/23 04/24/23 Unknown Rx tabs divalproex 500 mg tablet,delayed See Rx Instructions .Route 05/08/23 Unknown Rx release .COMPLEX #270 tabs primidone 50 mg tablet See Rx Instructions .Route 05/08/23 Unknown Rx .COMPLEX #180 tabs zonisamide 100 mg capsule See Rx Instructions .Route 05/08/23 Unknown Rx .COMPLEX #360 caps Allergies Allergy/AdvReac Type Severity Reaction Status Date / Time aspirin AdvReac Intermediate Itching & Verified 05/25/23 14:43 rash PFSH Acute PFSH: Medical History Psychiatric care Social History Smoking and tobacco status: never smoked Quit status (tobacco): has quit using tobacco Year quit tobacco: 10 years Second hand smoke exposure: No Smoking risk assessment/counseling performed?: No Reason smoking risk assessment not done: other Alcohol intake: never Desire information about alcohol rehabilitation?: No Counseling given: No Vitals/I&O/Wt Last Vital Signs Temp 99.6 F 05/26/23 03:56 Pulse 82 05/26/23 03:56 Resp 16 05/26/23 03:56 BP 138/78 05/26/23 03:56 Pulse Ox 91 05/26/23 03:56 O2 Del Method Room Air 05/26/23 03:56 O2 Flow Rate 2 05/25/23 20:14 05/25/23 05/25/23 05/26/23 14:59 22:59 06:59 Intake Total 3450 / 3450 Balance 3450 / 3450 Weight last 48 hrs Weight 106.594 kg Physical Exam Narrative: General: No acute distress, AO x3 HEENT: PERRLA, pupils bilaterally equal and reactive, pallors not present Chest: Normal vesicular breath sounds, no added sounds, equal good air entry bilaterally CVS: S1-S2 regular, no murmurs, no tachycardia, no gallops, no rubs Abdomen: Soft, nontender, no organomegaly, bowel sounds present Neuro: No focal deficits, no facial deformity, AO x3, power 5/5 in all limbs Data 05/25/23 14:50 05/25/23 14:50 Micro: Microbiology 05/25/23 15:33 Blood Culture - Preliminary Blood SPECIMEN COLLECTED 05/25/23 15:26 Blood Culture - Preliminary Blood SPECIMEN COLLECTED A&P Assessment and plan (1) Fever: 38-year-old male presenting to the hospital with 3 days of generalized weakness, malaise, fever and chills. Mild leukocytosis, lactic acidosis on evaluation. ezing Febrile to 103 Fahrenheit in the emergency room Source is currently under evaluation. Blood cultures ordered Chest x-ray without consolidation though patient has significant wheezing on exam. Cannot exclude possibility of acute bronchitis at this time Negative respiratory viral panel and Start empiric ceftriaxone and doxycycline while undergoing evaluation. DuoNeb and budesonide scheduled inhalation. . Check UA, tick panel IV fluids normal saline at 75 cc an hour, recheck lactate after hydration (2) Atrial tachycardia: resolved after iv hydration (3) Lactic acidosis: Attestations Medical Necessity Statement*: less than 2 midnight stay anticipated for hydration, repeat lactate, fever source evaluation Coding Level of Care Code Acute Code for Chg Fwd Diagnoses Fever R50.9 Atrial tachycardia I47.1 Lactic acidosis E87.20
[2023-05-26] MEDS: primidone 50 mg Tablet PO ×2 (05:21→12:04)
[2023-05-26] MEDS: cefTRIAXone 1,000 MG in sodium chloride 0.9% (plus) 50 ML 100 MG IV (05:22)
[2023-05-26 05:24] LABS: Thyroid Stimulating Hormone 3.34 uIU/mL (0.27-4.20)
[2023-05-26] MEDS: doxycycline 100 mg Tablet PO ×2 (08:37→17:01)
[2023-05-26] MEDS: zonisamide 100 MG Capsule 400 MG PO (08:38)
[2023-05-26] MEDS: sodium chloride 0.9% 1,000 ML 100 ML IV (08:38)
[2023-05-26] MEDS: pantoprazole DR 40 mg Tablet PO (08:38)
[2023-05-26] MEDS: apixaban 5 mg Tablet PO ×2 (08:38→17:02)
[2023-05-26] MEDS: metoprolol tartrate 50 mg Tablet PO ×2 (08:38→17:02)
[2023-05-26] MEDS: budesonide 0.5 mg/2 mL Neb INHALATION ×2 (08:56→21:00)
[2023-05-26] MEDS: ipratropium-albuterol 3 mL Neb INHALATION ×3 (08:56→21:00)
[2023-05-26 12:42] LABS: Amphetamines Screen Urine Negative (Negative); Barbiturates Screen Urine Positive (Negative); Benzodiazepines Screen Urine Negative (Negative); Cocaine Screen Urine Negative (Negative); Opiate Screen Urine Negative (Negative); PCP Screen Urine Negative (Negative); THC Screen Urine Negative (Negative)
--- NOTE | 2023-05-26 13:56 | P.PN_ITS ---
Subjective Subjective: H&P and labs appreciated. Examination patient lying comfortably in bed. States he is feeling a lot better. Denies any nausea, vomiting, headache, diarrhea, difficulty breathing, headache, chest pain. States he is feeling as if he is back to baseline. No fever since midnight. Tmax yesterday afternoon 103.1 Fahrenheit. Vitals/I&O/Wt Last Vital Signs Temp 98.7 F 05/26/23 11:55 Pulse 92 05/26/23 13:29 Resp 16 05/26/23 13:26 BP 147/82 05/26/23 11:55 Pulse Ox 94 05/26/23 13:26 O2 Del Method Room Air 05/26/23 13:26 O2 Flow Rate 2 05/25/23 20:14 05/25/23 05/26/23 05/26/23 22:59 06:59 14:59 Intake Total 3450 / 3450 50 / 3500 1720 / 1720 Output Total 450 / 450 Balance 3450 / 3450 50 / 3500 1270 / 1270 Weight last 48 hrs Weight 106.594 kg Physical Exam Narrative: General: No acute distress, AO x3 HEENT: PERRLA, pupils bilaterally equal and reactive Chest: Normal vesicular breath sounds, no added sounds, equal good air entry bilaterally CVS: S1-S2 regular, no murmurs, no tachycardia, no gallops, no rubs Abdomen: Soft, nontender, no organomegaly, bowel sounds present Neuro: No focal deficits, no facial deformity, AO x3, power 5/5 in all limbs Data 05/25/23 14:50 05/25/23 14:50 Micro: Microbiology 05/25/23 15:33 Blood Culture - Preliminary Blood SPECIMEN COLLECTED 05/25/23 15:26 Blood Culture - Preliminary Blood SPECIMEN COLLECTED A&P Assessment and plan (1) Fever: 38-year-old male presenting to the hospital with 3 days of generalized weakness, malaise, fever and chills. On admission he had mild leukocytosis, lactic acidosis on evaluation. With Tmax of 103.1 Fahrenheit. Symptoms could be secondary to infectious cause versus heat exhaustion. Sepsis present on admission. Ruled in by lactic acidosis, tachycardia, high- grade fever, leukocytosis. Has resolved now. Source is currently under evaluation. Follow-up blood cultures. Urinalysis negative for UTI, chest x-ray negative for any consolidation though patient did have wheezing on admission. Respiratory viral panel negative. Tick panel pending. Follow-up blood cultures, check sputum culture if possible. Continue with empiric ceftriaxone and doxycycline. If remains afebrile for next 24 hours can discontinue the antibiotics and monitor for 24 hours. (2) Atrial tachycardia: resolved after iv hydration (3) Lactic acidosis: (4) Acute kidney injury superimposed on CKD: Plan USMAN on CKD: Baseline creatinine seems to be around 1.4. Currently 1.8 on admission. Most likely in setting of dehydration. Check urine lites, urine creatinine. Encourage oral intake. Stop IV fluids. Monitor BMP daily. Medical reconciliation done for nephrotoxic drugs. Hold off on home dose of telmisartan for now. History of drug abuse: Add urine drug screen to UA from admission. Bipolar disorder. Hypertension: Goal blood pressure less than 140/90 mmHg. Continue with home dose of metoprolol 50 mg twice daily. Holding on on telmisartan. Continue to monitor and if needed can add amlodipine. Full code. Protonix for PUD prophylaxis Eliquis will suffice for DVT prophylaxis. Attestations Medical Necessity Statement*: Jamal Lama is being changed to inpatient status as stay will now exceed 2 midnights. Ongoing hospital care is necessary for for management of USMAN on CKD, sepsis under evaluation while heat exhaustion is ruled out Diagnoses Fever R50.9 Atrial tachycardia I47.1 Lactic acidosis E87.20 Acute kidney injury superimposed on CKD N17.9; N18.9
--- NOTE | 2023-05-26 14:11 | PC.NURSE ---
I received a call from Damaris in Lab stating that the labs that were sent down for today, including B12 and TSH, were also ran on 05/25. She inquired if these should be ran again today. I reviewed orders with her and explained that the physician should be contacted on any order clarifications. She verbalized understanding and obtained Dr. Thornton's name and stated she would call and f/u with him. No further issues at this time.
[2023-05-26 15:00] LABS: Iron 42 ug/dL (59-158); Percent Saturation 15.4 % (20-50); Total Iron Binding Capacity 271 mcg/dl; Unsaturated Iron Binding 229 ug/dL (112-347)
[2023-05-26 15:12] LABS: Vitamin B12 458 pg/mL (232-1245)
[2023-05-26] MEDS: divalproex DR 500 mg Tablet 1500 MG PO (20:29)
[2023-05-26] MEDS: atorvastatin 40 mg Tablet 20 MG PO (20:30)
[2023-05-26] MEDS: OLANZapine 10 mg TABLET PO (20:30)
[2023-05-27] VITALS (16 sets, daily range): BP systolic 114–147; BP diastolic 77–91; PULSE 64–114; RESP 16–20; TEMP 36.9–39.1; O2SAT 80–95
[2023-05-27] MEDS: acetaminophen 325 mg Tablet 650 MG PO (00:19)
[2023-05-27] MEDS: ipratropium-albuterol 3 mL Neb INHALATION ×4 (03:35→21:12)
[2023-05-27 05:12] LABS: Basophils # 0.1 10^3/uL (0.0-0.1); Basophils % 0.4 %; Eosinophils # 0.1 10^3/uL (0.0-0.8); Eosinophils % 0.4 %; Hematocrit 37.6 % (42.0-52.0); Hemoglobin 11.5 g/dL (11.7-16.6); Lymphocytes # 4.1 10^3/uL (0.8-4.8); Mean Corpuscular HGB Conc 30.6 g/dL (30.0-36.0); Mean Corpuscular Hemoglobin 29.3 pg (28.0-34.0); Mean Corpuscular Volume 95.9 fl (80-94); Mean Platelet Volume 9.9 fL (7.4-10.4); Monocytes # 2.1 10^3/uL (0.2-0.9); Monocytes % 15.1 %; Neutrophils # 7.61 10^3/uL (1.8-7.7); Neutrophils % 54.5 %; Nucleated Red Blood Cells % 0 %; Platelet Count 187 10^3/cmm (130-400); Red Blood Count 3.92 10^6/uL (4.1-5.3); Red Cell Distribution Width 14.9 % (12.1-15.1)
[2023-05-27 05:21] LABS: Estmated Average Glucose 111; Hemoglobin A1C 5.5 % (4.0-6.0)
[2023-05-27 05:49] LABS: Alanine Aminotransferase 13 U/L (0-41); Albumin Level 3.3 g/dL (3.5-5.2); Alkaline Phosphatase 63 U/L (40-130); Anion Gap 16.7 (5-19); Aspartate Amino Transferase 27 U/L (0-40); Blood Urea Nitrogen 15 mg/dL (6-20); Calcium 8.7 mg/dL (8.5-10.5); Carbon Dioxide 19 mmol/L (22-29); Chloride 107 mmol/L (98-107); Globulin 2.7 g/dL (1.3-4.6); Glomerular Filtration Rate 51.9 mL/min (90-130); Glucose 99 mg/dL (65-115); Osmolality Calculated 289 mOsm/kg (285-295); Potassium 3.7 mmol/L (3.5-5.1); Sodium 139 mmol/L (136-145); Total Bilirubin 0.3 mg/dL (0.15-1.2)
[2023-05-27 05:53] LABS: Chol HDL Ratio 4.15 mg/dL (1.0-5.00); Cholesterol 141 mg/dL (0-200); HDL Cholesterol 34 mg/dL (60-100); LDL Cholesterol Calculated 85 mg/dL (50-129); NT Pro B Type Natriuretic Pept 1011 pg/mL (0-125); Triglycerides 109 mg/dL (0-150); VLDL Cholestrol Calculation 22 mg/dL (0-30)
[2023-05-27] MEDS: cefTRIAXone 1,000 MG in sodium chloride 0.9% (plus) 50 ML 100 MG IV (05:57)
[2023-05-27] MEDS: primidone 50 mg Tablet PO ×2 (05:57→12:11)
[2023-05-27 06:18] LABS: Folate Level 11.7 ng/mL (4.5-32.2)
--- NOTE | 2023-05-27 07:08 | ECG_ITS ---
[facility] Test Date: 2023-05-27 Pat Name: Jamal Lama Department: Room: 266 Gender: Male Car Spotter: : 1965 Requested By: Steven Thornton Order Number: [id number] Artemio MD: Alexx Castillo M.D. Measurements Intervals [place] Rate: 161 P: 0 SC: 0 QRS: -28 QRSD: 106 T: 135 QT: 280 QTc: 459 Interpretive Statements ATRIAL FIBRILLATION WITH RAPID VENTRICULAR RESPONSE SEPTAL MYOCARDIAL INFARCTION , PROBABLY OLD [40+ ms Q WAVE IN V1/V2] MODERATE T-WAVE ABNORMALITY, CONSIDER LATERAL ISCHEMIA [-0.1+ mV T-WAVE IN I/aVL/V5/V6] CRITICAL TEST RESULT No previous ECG available for comparison Electronically Signed On 05-27-2023 12:56:07 CDT by Alexx Castillo M.D. [id number]
[2023-05-27] MEDS: metoprolol tartrate 50 mg Tablet PO ×3 (07:09→21:36)
[2023-05-27] MEDS: metoprolol tartrate 1 mg/1 mL SDV 5 mL 2.5 MG IVP (07:45)
[2023-05-27] MEDS: apixaban 5 mg Tablet PO ×2 (07:51→18:17)
--- NOTE | 2023-05-27 08:24 | ECG_ITS ---
[facility] Test Date: 2023-05-27 Pat Name: Jamal Lama Department: Room: 266 Gender: Male Manager Business Management: : 1965 Requested By: Onur Tapia Order Number: [id number] Artemio MD: Alexx Castillo M.D. Measurements Intervals [place] Rate: 77 P: 26 PA: 156 QRS: -19 QRSD: 122 T: 65 QT: 371 QTc: 421 Interpretive Statements SINUS RHYTHM POSSIBLE RIGHT VENTRICULAR CONDUCTION DELAY [RSR (QR) IN V1/V2] SEPTAL MYOCARDIAL INFARCTION , PROBABLY OLD [40+ ms Q WAVE IN V1/V2] PROBABLE LATERAL MYOCARDIAL INFARCTION , OF INDETERMINATE AGE [35 ms Q WAVE IN I/aVL/V5/V6] Compared to ECG 05/27/2023 07:08:44 Atrial fibrillation no longer present T-wave abnormality no longer present Possible ischemia no longer present Myocardial infarct finding still present Electronically Signed On 05-27-2023 12:56:38 CDT by Alexx Castillo M.D. [id number]
[2023-05-27 08:26] LABS: Troponin(5th) Baseline 29 ng/L (0-15)
[2023-05-27] MEDS: zonisamide 100 MG Capsule 400 MG PO (08:53)
[2023-05-27] MEDS: doxycycline 100 mg Tablet PO ×2 (08:53→18:17)
[2023-05-27] MEDS: pantoprazole DR 40 mg Tablet PO (08:53)
[2023-05-27 10:27] LABS: Troponin 5 2HR 26.51 ng/L (0-15)
--- NOTE | 2023-05-27 10:27 | ECG_ITS ---
[facility] Test Date: 2023-05-27 Pat Name: Jamal Lama Department: Room: 266 Gender: Male Radiology Administrator: : 1965 Requested By: Onur Tapia Order Number: [id number] Artemio MD: Alexx Castillo M.D. Measurements Intervals [place] Rate: 76 P: 38 [place]: 156 QRS: -19 QRSD: 106 T: 63 QT: 367 QTc: 415 Interpretive Statements SINUS RHYTHM INCOMPLETE RIGHT BUNDLE BRANCH BLOCK [90+ ms QRS DURATION, TERMINAL R IN V1/V2, 40+ ms S IN I/aVL/V4/V5/V6] PROBABLE SEPTAL MYOCARDIAL INFARCTION , PROBABLY OLD [35 ms Q WAVE IN V1/V2] POSSIBLE LATERAL MYOCARDIAL INFARCTION , OF INDETERMINATE AGE [30 ms Q WAVE IN I/aVL/V5/V6] Compared to ECG 05/27/2023 08:24:31 Incomplete right bundle-branch block now present Myocardial infarct finding still present Electronically Signed On 05-27-2023 13:00:06 CDT by Alexx Castillo M.D. [id number]
[2023-05-27 10:35] LABS: Troponin 5 2HR Delta -2.49 ABS# (0-10)
--- NOTE | 2023-05-27 13:28 | ECG_ITS ---
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 Measurements Intervals [place] Rate: 84 P: 19 [place]: 153 QRS: -20 QRSD: 113 T: 68 QT: 353 QTc: 418 Interpretive Statements SINUS RHYTHM INCOMPLETE RIGHT BUNDLE BRANCH BLOCK [90+ ms QRS DURATION, TERMINAL R IN V1/V2, 40+ ms S IN I/aVL/V4/V5/V6] SEPTAL MYOCARDIAL INFARCTION , PROBABLY OLD [40+ ms Q WAVE IN V1/V2] LATERAL MYOCARDIAL INFARCTION , PROBABLY RECENT [40+ ms Q WAVE AND/OR ST/T ABNORMALITY IN I/aVL/V5/V6] ACUTE NV Compared to ECG 05/27/2023 10:27:11 No significant changes Electronically Signed On 05-28-2023 21:06:25 CDT by Alexx Castillo M.D. [id number]
--- NOTE | 2023-05-27 13:46 | PM.PN ---
Subjective Subjective: Patient remains febrile overnight. Endorses malaise and chills. He denies sore throat, dysuria, diarrhea, wounds or rash. Medications: Reviewed: Yes Vitals/I&O/Wt Last Vital Signs Temp 98.5 F 05/27/23 12:00 Pulse 74 05/27/23 13:42 Resp 16 05/27/23 13:34 BP 129/77 05/27/23 12:00 Pulse Ox 94 05/27/23 13:34 O2 Del Method Room Air 05/27/23 13:34 O2 Flow Rate 2 05/27/23 08:00 05/26/23 05/27/23 05/27/23 22:59 06:59 14:59 Intake Total 1875 / 3595 480 / 4075 770 / 770 Output Total 500 / 950 1000 / 1000 Balance 1375 / 2645 480 / 3125 -230 / -230 Weight last 48 hrs Weight 106.594 kg Physical Exam Narrative: General: Patient is awake and alert. Head: Normocephalic. Atraumatic. EOM intact. Neck: No JVD. Cardiovascular: RRR. No gallops. No murmurs. No peripheral edema. Lungs: Faint wheeze, no use of accessory muscles, no crackles. Skin: No jaundice. No rashes. Abdomen: Normal bowel sounds, abdomen soft and nontender. Genito Urinary: Genital exam not performed since complaints not related. Rectal: Rectal exam not performed since no symptoms indicated blood loss. Extremities: No cyanosis or clubbing. Musculoskeletal: 5/5 strength, normal range of motion, no swollen or erythematous joints. Neurological: Moves all 4 extremities. No myoclonus. Data 05/27/23 04:20 05/27/23 04:20 Micro: Microbiology 05/25/23 15:33 Blood Culture - Preliminary Blood NEGATIVE TO DATE 05/25/23 15:26 Blood Culture - Preliminary Blood NEGATIVE TO DATE A&P Assessment and plan (1) Atrial tachycardia: Continue oral metoprolol, may double dose pending heart rate Received 1 dose of IV push metoprolol for rapid ventricular rate Trend troponin Serial EKG Continue home apixaban Telemetry (2) Fever: He continues to be febrile Continue empiric antibiotics with ceftriaxone doxycycline Follow-up cultures, tick panel (3) Lactic acidosis: Improved with IV fluids Continue to monitor (4) Essential tremor: Continue primidone Supportive care Plan DVT prophylaxis: Apixaban CODE STATUS: Full code Attestations Medical Necessity Statement*: Patient continues to have high fevers concerning for occult infection that has not declared itself with blood culture still pending for which patient requires ongoing hospitalization for IV antibiotics and supportive care. Coding Level of Care Code Acute Code for g Fwd Diagnoses Atrial tachycardia I47.1 Fever R50.9 Lactic acidosis E87.20 Essential tremor G25.0
[2023-05-27 14:37] LABS: Troponin 5 6HR 23.87 ng/L (0-15); Troponin 5 6HR Delta -5.13 ng/L (0-12)
[2023-05-27] MEDS: budesonide 0.5 mg/2 mL Neb INHALATION (21:12)
[2023-05-27] MEDS: atorvastatin 40 mg Tablet 20 MG PO (21:36)
[2023-05-27] MEDS: OLANZapine 10 mg TABLET PO (21:36)
[2023-05-27] MEDS: divalproex DR 500 mg Tablet 1500 MG PO (21:36)
[2023-05-28] VITALS (69 sets, daily range): BP systolic 97–153; BP diastolic 59–89; PULSE 78–161; RESP 10–43; TEMP 36.7–39.4; O2SAT 90–96
[2023-05-28] MEDS: acetaminophen 325 mg Tablet 650 MG PO (00:47)
[2023-05-28] MEDS: ipratropium-albuterol 3 mL Neb INHALATION ×2 (01:07→14:00)
--- NOTE | 2023-05-28 03:55 | ECG_ITS ---
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 Measurements Intervals [place] Rate: 157 P: 0 [place]: 0 QRS: -28 QRSD: 113 T: 126 QT: 298 QTc: 483 Interpretive Statements ATRIAL FIBRILLATION WITH RAPID VENTRICULAR RESPONSE POSSIBLE LATERAL MYOCARDIAL INFARCTION , OF INDETERMINATE AGE [30 ms Q WAVE IN I/aVL/V5/V6] CRITICAL TEST RESULT INTERPRETATION BASED ON A DEFAULT AGE OF 40 YEARS Compared to ECG 05/27/2023 13:28:27 Sinus rhythm no longer present Incomplete right bundle-branch block no longer present Myocardial infarct finding still present Electronically Signed On 05-28-2023 21:01:04 CDT by Alexx Castillo M.D. [id number]
[2023-05-28] MEDS: metoprolol tartrate 1 mg/1 mL SDV 5 mL 5 MG IVP (04:00)
[2023-05-28] MEDS: metoprolol tartrate 50 mg Tablet PO ×3 (04:24→18:27)
[2023-05-28] MEDS: cefTRIAXone 1,000 MG in sodium chloride 0.9% (plus) 50 ML 100 MG IV (04:25)
[2023-05-28] MEDS: dilTIAZem 5 mg/mL SDV 5 mL 10 MG IVP ×2 (04:25→05:20)
[2023-05-28] MEDS: metoprolol tartrate 1 mg/1 mL SDV 5 mL 2.5 MG IVP (04:56)
--- NOTE | 2023-05-28 05:09 | ECG_ITS ---
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 Measurements Intervals [place] Rate: 153 P: 0 [place]: 0 QRS: -30 QRSD: 108 T: 124 QT: 285 QTc: 456 Interpretive Statements ATRIAL FIBRILLATION WITH RAPID VENTRICULAR RESPONSE BORDERLINE LEFT AXIS DEVIATION [QRS AXIS < -20] ST DEVIATION AND MODERATE T-WAVE ABNORMALITY, CONSIDER LATERAL ISCHEMIA [-0.1+ mV T-WAVE IN I/aVL/V5/V6] CRITICAL TEST RESULT Compared to ECG 05/28/2023 03:47:19 T-wave abnormality now present Possible ischemia now present Myocardial infarct finding no longer present Electronically Signed On 05-28-2023 21:01:13 CDT by Alexx Castillo M.D. [id number]
[2023-05-28] MEDS: primidone 50 mg Tablet PO ×2 (05:20→14:13)
[2023-05-28] MEDS: dilTIAZem 100 MG in sodium chloride 0.9% (add-van) 100 ML IV (05:55)
[2023-05-28 05:56] LABS: Basophils % 0.3 %; Eosinophils # 0.2 10^3/uL (0.0-0.8); Eosinophils % 1.3 %; Hematocrit 39.3 % (42.0-52.0); Hemoglobin 11.8 g/dL (11.7-16.6); Lymphocytes # 3.4 10^3/uL (0.8-4.8); Mean Corpuscular Hemoglobin 29.1 pg (28.0-34.0); Mean Corpuscular Volume 96.8 fl (80-94); Mean Platelet Volume 9.7 fL (7.4-10.4); Monocytes # 1.8 10^3/uL (0.2-0.9); Monocytes % 12.3 %; Neutrophils % 62.6 %; Nucleated Red Blood Cells % 0 %; Platelet Count 199 10^3/cmm (130-400); Red Blood Count 4.06 10^6/uL (4.1-5.3); Red Cell Distribution Width 14.8 % (12.1-15.1)
--- NOTE | 2023-05-28 06:00 | PC.NURSE ---
Patient's heart rate became elevated into 140-160s at approximately 0355. An EKG was performed and patient was noted to be in Afib with RVR. Dr. Diaz was called and patient was ordered to receive 5mg metoprolol IVP once. Patient did not respond to treatment. At approximately, 0425, Dr. Diaz was notified again, and patient received 10mg Cardizem IVP once and was ordered to give his 0600 dose of 50mg PO metoprolol. After about 20 minutes, patient tried to convert out of Afib with RVR, which only lasted about 45 seconds to one minute. Dr. Diaz was again notified and patient received 2.5mg metoprolol IVP once. Patient attempted again to convert out of rhythm, but did not. Another EKG was performed since rhythm looked to have changed and patient was still in Afib with RVR, heart 153. Dr. Diaz was notified and patient was ordered another 10mg Cardizem IVP once and to be transferred to CSU to be placed on a Cardizem drip. Patient was transported to CSU via bed with all belongings at approximately 0555.
[2023-05-28 06:14] LABS: Albumin Level 3.1 g/dL (3.5-5.2); Blood Urea Nitrogen 15 mg/dL (6-20); Calcium 9.2 mg/dL (8.5-10.5); Carbon Dioxide 17 mmol/L (22-29); Chloride 107 mmol/L (98-107); Glomerular Filtration Rate 51.9 mL/min (90-130); Glucose 87 mg/dL (65-115); Magnesium 1.8 mg/dL (1.7-2.3); Phosphorus 3.6 mg/dL (2.5-4.5); Sodium 137 mmol/L (136-145)
[2023-05-28 06:24] LABS: Anion Gap 17.2 (5-19); Potassium 4.2 mmol/L (3.5-5.1)
[2023-05-28] MEDS: pantoprazole DR 40 mg Tablet PO (08:16)
[2023-05-28] MEDS: apixaban 5 mg Tablet PO ×2 (08:17→17:12)
[2023-05-28] MEDS: doxycycline 100 mg Tablet PO ×2 (08:17→17:12)
[2023-05-28] MEDS: zonisamide 100 MG Capsule 400 MG PO (08:50)
[2023-05-28] MEDS: budesonide 0.5 mg/2 mL Neb INHALATION (09:14)
[2023-05-28] MEDS: dilTIAZem 60 mg Tablet PO ×3 (10:59→22:23)
--- NOTE | 2023-05-28 12:59 | PM.PN ---
Subjective Subjective: Patient fevered to 103 degrees Fahrenheit overnight. He was found to have recurrent atrial fibrillation with rapid ventricular rate. He was transferred to the CSU and started on Cardizem drip. Drip is currently running at 15 mg/h. He remains tachycardic per telemetry review. Patient denies any symptoms. Denies nausea, emesis, abdominal pain, diarrhea, sore throat, dysuria, headache, rash, or sores. Endorses prior history of atrial fibrillation. Medications: Reviewed: Yes Vitals/I&O/Wt Last Vital Signs Temp 98.1 F 05/28/23 07:27 Pulse 86 05/28/23 11:23 Resp 16 05/28/23 11:23 BP 125/65 05/28/23 11:23 Pulse Ox 92 05/28/23 11:23 O2 Del Method Nasal Cannula 05/28/23 11:23 O2 Flow Rate 2 05/28/23 09:27 05/27/23 05/28/23 05/28/23 22:59 06:59 14:59 Intake Total 960 / 1730 651.583 / 2381.583 626.167 / 626.167 Output Total 200 / 1200 750 / 750 Balance 960 / 730 451.583 / 1181.583 -123.833 / -123.833 Physical Exam Narrative: General: Patient is awake and alert. Head: Normocephalic. Atraumatic. EOM intact. Neck: No JVD. Cardiovascular: Irregularly irregular rhythm. Tachycardic. No gallops. No murmurs. Lungs: Faint wheeze, no use of accessory muscles, no crackles. Skin: No jaundice. No rashes. Abdomen: Normal bowel sounds, abdomen soft and nontender. Genito Urinary: Genital exam not performed since complaints not related. Rectal: Rectal exam not performed since no symptoms indicated blood loss. Extremities: No cyanosis or clubbing. Musculoskeletal: 5/5 strength, normal range of motion, no swollen or erythematous joints. Neurological: Moves all 4 extremities. No myoclonus. Data 05/28/23 04:50 05/28/23 04:50 A&P Assessment and plan (1) Atrial tachycardia: Paroxysmal atrial fibrillation with rapid ventricular rate Increase metoprolol to 4 times daily dosing Start oral diltiazem 60 mg every 6 hours, wean off drip as tolerated Continue therapeutic anticoagulation with apixaban Telemetry monitoring Monitor electrolytes (2) Fever: Continues to fever Continue empiric antibiotics with ceftriaxone and doxycycline Follow-up cultures, tick panel (3) Lactic acidosis: Patient developing metabolic acidosis Improved perfusion with heart rate control Continue empiric antibiotics (4) Essential tremor: Continue primidone Supportive care (5) CKD (chronic kidney disease): CKD-III Renally dose medications Avoid nephrotoxins (6) Bipolar I disorder, most recent episode manic, in full remission: In remission Plan DVT prophylaxis: Apixaban CODE STATUS: Full code Attestations Medical Necessity Statement*: Patient with atrial fibrillation and rapid ventricular rate with high fevers requiring ongoing hospitalization for IV cardiac drip, IV antibiotics, and supportive care. Coding Level of Care Code Acute Code for [facility] Diagnoses Atrial tachycardia I47.1 Fever R50.9 Lactic acidosis E87.20 Essential tremor G25.0 CKD (chronic kidney disease) N18.9 Bipolar I disorder, most recent episode manic, in full remission F31.74
--- NOTE | 2023-05-28 15:01 | PC.NURSE ---
Patient converted to sinus rhythm at 1336 and then went back into afib at 1442. Patient appears to switch back and forth between afib and sinus rhythm.
[2023-05-28] MEDS: atorvastatin 40 mg Tablet 20 MG PO (20:54)
[2023-05-28] MEDS: divalproex DR 500 mg Tablet 1500 MG PO (20:54)
[2023-05-28] MEDS: OLANZapine 10 mg TABLET PO (20:54)
[2023-05-29] VITALS (14 sets, daily range): BP systolic 108–140; BP diastolic 62–84; PULSE 70–155; RESP 22–33; TEMP 36.7–37.7; O2SAT 92–96
[2023-05-29] MEDS: metoprolol tartrate 50 mg Tablet PO ×4 (00:29→19:23)
[2023-05-29] MEDS: ipratropium-albuterol 3 mL Neb INHALATION ×3 (03:02→20:52)
[2023-05-29 03:06] LABS: Basophils % 0.3 %; Eosinophils # 0.4 10^3/uL (0.0-0.8); Eosinophils % 3.4 %; Hematocrit 37.5 % (42.0-52.0); Hemoglobin 11.7 g/dL (11.7-16.6); Lymphocytes % 31.8 %; Mean Corpuscular HGB Conc 31.2 g/dL (30.0-36.0); Mean Corpuscular Hemoglobin 29.4 pg (28.0-34.0); Mean Corpuscular Volume 94.2 fl (80-94); Mean Platelet Volume 9.9 fL (7.4-10.4); Monocytes # 1.6 10^3/uL (0.2-0.9); Monocytes % 12.6 %; Neutrophils # 6.43 10^3/uL (1.8-7.7); Neutrophils % 51.3 %; Nucleated Red Blood Cells % 0 %; Platelet Count 213 10^3/cmm (130-400); Red Blood Count 3.98 10^6/uL (4.1-5.3); Red Cell Distribution Width 14.9 % (12.1-15.1); White Blood Count 12.5 10^3/uL (4.0-10.0)
[2023-05-29] MEDS: acetaminophen 325 mg Tablet 650 MG PO (03:19)
[2023-05-29 03:30] LABS: Alanine Aminotransferase 17 U/L (0-41); Albumin Level 3.5 g/dL (3.5-5.2); Alkaline Phosphatase 114 U/L (40-130); Anion Gap 17.9 (5-19); Aspartate Amino Transferase 24 U/L (0-40); Blood Urea Nitrogen 15 mg/dL (6-20); Calcium 9.5 mg/dL (8.5-10.5); Carbon Dioxide 21 mmol/L (22-29); Chloride 104 mmol/L (98-107); Glomerular Filtration Rate 51.9 mL/min (90-130); Glucose 83 mg/dL (65-115); Magnesium 1.8 mg/dL (1.7-2.3); Osmolality Calculated 288 mOsm/kg (285-295); Phosphorus 3.8 mg/dL (2.5-4.5); Potassium 3.9 mmol/L (3.5-5.1); Sodium 139 mmol/L (136-145); Total Bilirubin 0.4 mg/dL (0.15-1.2); Total Protein 6.5 g/dL (6.6-8.7)
[2023-05-29] MEDS: cefTRIAXone 1,000 MG in sodium chloride 0.9% (plus) 50 ML 100 MG IV (04:25)
[2023-05-29] MEDS: dilTIAZem 60 mg Tablet PO ×4 (04:25→22:50)
[2023-05-29] MEDS: primidone 50 mg Tablet PO ×2 (05:13→12:03)
[2023-05-29] MEDS: pantoprazole DR 40 mg Tablet PO (08:44)
[2023-05-29] MEDS: doxycycline 100 mg Tablet PO ×2 (08:44→17:29)
[2023-05-29] MEDS: zonisamide 100 MG Capsule 400 MG PO (08:44)
[2023-05-29] MEDS: apixaban 5 mg Tablet PO ×2 (08:44→17:29)
--- NOTE | 2023-05-29 10:21 | PC.SOCIAL ---
[facility] IMM update. Pg 2 of IMM dated and reviewed with pt. Copy provided, dated initialed and placed in chart at 845 am.
--- NOTE | 2023-05-29 13:57 | USCV_ITS ---
Jamal Lama Age: 58 Gender: M : 1965 Exam Date: 05/29/2023 15:37 Ordering Phys: Travis Prado MD Technologist: Kiel Colón [place] [facility] [place]: fever BP: 121 / 62 HR: 78 Rhythm: Sinus Technical Quality: Adequate MEASUREMENTS (Male / Female) Normal Values 2D ECHO LV Diastolic Diameter PLAX 3.8 cm 4.2 - 5.9 / 3.9 - 5.3 cm LV Systolic Diameter PLAX 2.4 cm IVS Diastolic Thickness 1.4 cm 0.6 - 1.0 / 0.6 - 0.9 cm IVS Systolic Thickness 1.7 cm LVPW Diastolic Thickness 1.4 cm 0.6 - 1.0 / 0.6 - 0.9 cm LVPW Systolic Thickness 1.5 cm LVOT Diameter 2.0 cm LV Ejection Fraction 2D Teich 65.7 % LV Ejection Fraction MOD 2C 73.3 % LV Ejection Fraction 2C AL 72.9 % LA Diameter 4.6 cm IVC Diameter 1.6 cm M-MODE Aortic Annulus Diameter 3.2 cm LA Ao Ratio MM 1.6 MV E Point Septal Separation 1.1 cm DOPPLER AV Peak Velocity 135.0 cm/s LVOT Peak Velocity 105.0 cm/s AV Area Cont Eq vti 2.7 cm squared AV Area Cont Eq pk 2.4 cm squared MV Area PHT 6.3 cm squared Mitral E to A Ratio 1.4 MV E' Velocity 53.5 cm/s Mitral E to MV E' Ratio 8.8 Mitral E to LV E' Lateral Ratio 6.4 Mitral E to LV E' Septal Ratio 14.1 TR Peak Velocity 288.0 cm/s TR Peak Gradient 33.2 mmHg TV Peak E Velocity 124.0 cm/s Right Atrial Pressure 3.0 mmHg Pulmonary Artery Systolic Pressu 36.2 mmHg RV Acceleration Time 0.1 s FINDINGS Left Ventricle Normal left ventricular size, systolic function and wall thickness, with no regional wall motion abnormalities. Left ventricular ejection fraction is estimated at 65 %. Normal diastolic function. Right Ventricle Normal right ventricular size and systolic function. Right ventricular systolic pressure 36.2 mmHg. Right Atrium Normal right atrial size. Left Atrium Normal left atrial size. Mitral Valve Structurally normal mitral valve. No mitral valve stenosis. Trace mitral valve regurgitation. Aortic Valve Probably structurally normal trileaflet aortic valve. No aortic valve stenosis. No aortic valve regurgitation. Tricuspid Valve Structurally normal tricuspid valve. Trace tricuspid valve regurgitation. Pulmonic Valve Pulmonic valve not well visualized. Pericardium No pericardial effusion. Aorta Normal size aortic root and proximal ascending aorta. IVC Inferior vena cava not visualized. CONCLUSIONS 1. Normal left ventricular size, systolic function and wall thickness, with no regional wall motion abnormalities. Left ventricular ejection fraction is estimated at 65 %. Normal diastolic function. 2. No significant valvukar abnormality. 3. No prior similar studies to compare. Estefany Garner MD (Electronically Signed) Final Date: 30 May 2023 10:33 S
[2023-05-29 16:29] LABS: Lyme AB Screen <0.90 index
--- NOTE | 2023-05-29 17:36 | P.PN_ITS ---
Subjective Subjective: Patient was seen and examined this morning, currently he has remained afebrile, last noted Tmax was on: 05/28, blood cultures so far has remained negative, given the fact that the patient has continued to Have intermittent temperature spikes, and having history of meth use, will repeat blood culture, do 2D echo, For now we will continue empirically on ceftriaxone and doxycycline, tick panel is pending. With regards to the A-fib with RVR currently heart rate is decently controlled and is on p.o. Cardizem as well as p.o. metoprolol, and on Eliquis for anticoagulation. Medications: Reviewed: Yes Medication Review Details: Generic Name Dose Route Start Last Admin Trade Name Freq PRN Reason Stop Dose Admin Acetaminophen 650 mg 05/25/23 20:01 05/29/23 03:19 Acetaminophen 32 5 Mg Tablet PO 650 mg Q6H PRN Administration Mild/Mod Pain Or Temp >/= 101 Albuterol/Ipratrop ium 3 ml 05/26/23 04:45 05/29/23 14:07 Ipratropium-Albu terol 3 Ml Neb INHALATION 3 ml Q6H.RESP PETER Administration Apixaban 5 mg 05/26/23 09:00 05/29/23 17:29 Apixaban 5 Mg Ta blet PO 5 mg BID PETER Administration Atorvastatin Calci um 20 mg 05/26/23 21:00 05/28/23 20:54 Atorvastatin 40 Mg Tablet PO 20 mg BEDTIME PETER Administration Budesonide 0.5 mg 05/26/23 08:00 05/29/23 08:16 Budesonide 0.5 M g/2 Ml Neb INHALATION Not Given BID.RESPIRATORY S CH Diltiazem HCl 60 mg 05/28/23 11:00 05/29/23 17:29 Diltiazem 60 Mg Tablet PO 60 mg Q6H PETER Administration Divalproex Sodium 1,500 mg 05/26/23 21:00 05/28/23 20:[address] 50 0 Mg Tablet PO 1,500 mg BEDTIME PETER Administration Doxycycline Monohy drate 100 mg 05/26/23 09:00 05/29/23 17:29 Doxycycline 100 Mg Tablet PO 100 mg BID PETER Administration Protocol Ceftriaxone Sodium 1,000 mg/ 50 mls @ 100 mls/ hr 05/26/23 05:00 05/29/23 05:16 Sodium Chloride IV Infused Q24H PETER Infusion Protocol Diltiazem HCl 100 mg/ Sodium 100 mls @ 0 mls/h r 05/28/23 05:30 05/28/23 13:43 Chloride IV Infused .Q0M PETER Titration Protocol Per Protocol Metoprolol Tartrat e 50 mg 05/28/23 13:15 05/29/23 12:03 Metoprolol Tartr ate 50 Mg Tablet PO 50 mg Q6H PETER Administration Olanzapine 10 mg 05/26/23 21:00 05/28/23 20:54 Olanzapine 10 Mg Tablet PO 10 mg BEDTIME PETER Administration Pantoprazole Sodiu m 40 mg 05/26/23 09:00 05/29/23 08:[address] 40 Mg Tablet PO 40 mg DAILY PETER Administration Primidone 50 mg 05/26/23 06:00 05/29/23 12:03 Primidone 50 Mg Tablet PO 50 mg 0600,1200 PETER Administration Zonisamide 400 mg 05/26/23 09:00 05/29/23 08:44 Zonisamide 100 M g Capsule PO 400 mg DAILY PETER Administration Vitals/I&O/Wt Last Vital Signs Temp 98.0 F 05/29/23 08:00 Pulse 76 05/29/23 14:22 Resp 24 H 05/29/23 14:00 BP 121/62 05/29/23 12:00 Pulse Ox 95 05/29/23 14:00 O2 Del Method Nasal Cannula 05/29/23 14:00 O2 Flow Rate 2 05/29/23 14:00 05/29/23 05/29/23 05/29/23 06:59 14:59 22:59 Intake Total 850 / 2588.417 960 / 960 Output Total 500 / 1500 Balance 350 / 1088.417 960 / 960 Physical Exam HENMT: COMMON NORMALS: normocephalic, atraumatic, hearing grossly normal bilaterally and external ears normal HEAD & SCALP: normocephalic and atraumatic EXTERNAL EAR: Yes external ears normal Resp: COMMON NORMALS: normal respiratory effort, No retractions, No use of accessory muscles and clear to auscultation bilaterally EFFORT & INSPECTION: Yes symmetric chest movement AUSCULTATION: clear to auscultation bilaterally Cardio: OTHER: Irregularly irregular rhythm S1-S2 of variable intensity GI: COMMON NORMALS: Normal to inspection, nondistended, normoactive bowel sounds present, Soft to palpation, non-tender, No hepatosplenomegaly present and no masses AUSCULTATION: Yes normoactive bowel sounds PALPATION: Yes Soft to palpation and Yes No hepatosplenomegaly present RECTAL EXAM: Yes deferred Extremity: COMMON NORMALS: no clubbing, cyanosis or edema and no pedal edema Data 05/29/23 02:29 05/29/23 02:29 Micro: Microbiology 05/29/23 14:22 Blood Culture - Preliminary Blood SPECIMEN COLLECTED 05/29/23 14:17 Blood Culture - Preliminary Blood SPECIMEN COLLECTED A&P Assessment and plan (1) Fever: 38-year-old male presenting to the hospital with 3 days of generalized weakness, malaise, fever and chills. On admission he had mild leukocytosis, lactic acidosis on evaluation. With Tmax of 103.1 Fahrenheit. Symptoms could be secondary to infectious cause versus heat exhaustion. Sepsis present on admission. Ruled in by lactic acidosis, tachycardia, high- grade fever, leukocytosis. Has resolved now. Source is currently under evaluation. Blood cultures: Negative Follow repeat blood culture Urinalysis: Clean 2D echo: chest x-ray has not shown any infiltrate effusion or consolidation Respiratory viral panel negative. Tick panel pending. sputum culture if possible. Continue with empiric ceftriaxone and doxycycline. (2) Atrial tachycardia: resolved after iv hydration (3) Lactic acidosis: (4) Acute kidney injury superimposed on CKD: (5) Atrial fibrillation with RVR: No prior history of A-fib, follow-up 2D echo, He was initially on Cardizem drip, has been transitioned to p.o. Cardizem as well as p.o. metoprolol. Currently heart rate is decently controlled. Plan USMAN on CKD: Baseline creatinine seems to be around 1.4. Currently 1.8 on admission. Most likely in setting of dehydration. Initially was on IV fluids, has been stopped, avoid nephrotoxic, assess urine electrolytes, monitor intake output chart. Hold off on home dose of telmisartan for now. History of drug abuse: Add urine drug screen to UA from admission. Bipolar disorder. Hypertension: Goal blood pressure less than 140/90 mmHg. Continue with home dose of metoprolol 50 mg twice daily. Holding on on telmisartan. Continue to monitor and if needed can add amlodipine. Full code. Protonix for PUD prophylaxis Eliquis will suffice for DVT prophylaxis. Attestations Medical Necessity Statement*: Needs to be in hospital for empiric antibiotics, monitoring of fever Coding Level of Care Code Acute Code for Chg Fwd Diagnoses Fever R50.9 Atrial tachycardia I47.1 Lactic acidosis E87.20 Acute kidney injury superimposed on CKD N17.9; N18.9 Atrial fibrillation with RVR I48.91
--- NOTE | 2023-05-29 19:35 | ECG_ITS ---
[facility] Test Date: 2023-05-29 Pat Name: Jamal Lama Department: Room: 104 Gender: Male [employer] Operator: : 1965 Requested By: Rajinder Morales Order Number: [id number] Artemio MD: Alexx Castillo M.D. Measurements Intervals [place] Rate: 81 P: 29 CT: 164 QRS: -14 QRSD: 118 T: 74 QT: 375 QTc: 436 Interpretive Statements SINUS RHYTHM MODERATE INTRAVENTRICULAR CONDUCTION DELAY [110+ ms QRS DURATION] NONSPECIFIC T-WAVE ABNORMALITY Compared to ECG 05/28/2023 05:09:36 Intraventricular conduction delay now present Atrial fibrillation no longer present Possible ischemia no longer present T-wave abnormality still present Electronically Signed On 05-29-2023 21:40:45 CDT by Alexx Castillo M.D. [id number]
--- NOTE | 2023-05-29 20:07 | PC.NURSE ---
Patient complained of chest pain 5 on scale 0-10. EKG performed, Dr Sam notified.
[2023-05-29] MEDS: budesonide 0.5 mg/2 mL Neb INHALATION (20:52)
[2023-05-29] MEDS: calcium carbonate 500 mg Chew Tablet 1000 MG PO (21:22)
[2023-05-29] MEDS: atorvastatin 40 mg Tablet 20 MG PO (22:49)
[2023-05-29] MEDS: OLANZapine 10 mg TABLET PO (22:49)
[2023-05-29] MEDS: divalproex DR 500 mg Tablet 1500 MG PO (22:49)
[2023-05-30] VITALS (17 sets, daily range): BP systolic 103–123; BP diastolic 60–88; PULSE 65–105; RESP 18–29; TEMP 36.7–37.2; O2SAT 91–95
[2023-05-30] MEDS: metoprolol tartrate 50 mg Tablet PO ×4 (01:26→18:30)
[2023-05-30] MEDS: ipratropium-albuterol 3 mL Neb INHALATION ×4 (01:35→20:29)
[2023-05-30] MEDS: cefTRIAXone 1,000 MG in sodium chloride 0.9% (plus) 50 ML 100 MG IV (05:08)
[2023-05-30] MEDS: dilTIAZem 60 mg Tablet PO ×4 (05:08→23:40)
--- NOTE | 2023-05-30 06:25 | PC.NURSE ---
reviewed chart and agree with documentation by nurse resident
[2023-05-30] MEDS: budesonide 0.5 mg/2 mL Neb INHALATION ×2 (08:51→20:29)
[2023-05-30] MEDS: apixaban 5 mg Tablet PO ×2 (09:16→18:30)
[2023-05-30] MEDS: doxycycline 100 mg Tablet PO ×2 (09:16→18:29)
[2023-05-30] MEDS: pantoprazole DR 40 mg Tablet PO (09:16)
[2023-05-30] MEDS: zonisamide 100 MG Capsule 400 MG PO (09:16)
--- NOTE | 2023-05-30 12:06 | PM.PN ---
Subjective Subjective: Patient was seen and examined this morning, currently he has remained afebrile, last noted Tmax was on: 05/28, repeat blood cultures so far has been negative, 2D echo was done which failed to show any, features suggestive of infective endocarditis, wbc is trending down.Intermittently going into A-fib with RVR with heart rate in 120s-130s patient is mostly asymptomatic during these episodes, spontaneously converts to sinus rhythm. Medications: Reviewed: Yes Medication Review Details: Generic Name Dose Route Start Last Admin Trade Name Freduran PRN Reason Stop Dose Admin Acetaminophen 650 mg 05/25/23 20:01 05/29/23 03:19 Acetaminophen 32 5 Mg Tablet PO 650 mg Q6H PRN Administration Mild/Mod Pain Or Temp >/= 101 Albuterol/Ipratrop ium 3 ml 05/26/23 04:45 05/30/23 08:51 Ipratropium-Albu terol 3 Ml Neb INHALATION 3 ml Q6H.RESP PETER Administration Apixaban 5 mg 05/26/23 09:00 05/30/23 09:16 Apixaban 5 Mg Ta blet PO 5 mg BID PETER Administration Atorvastatin Calci um 20 mg 05/26/23 21:00 05/29/23 22:49 Atorvastatin 40 Mg Tablet PO 20 mg BEDTIME PETER Administration Budesonide 0.5 mg 05/26/23 08:00 05/30/23 08:51 Budesonide 0.5 M g/2 Ml Neb INHALATION 0.5 mg BID.RESPIRATORY S CH Administration Calcium Carbonate 1,000 mg 05/29/23 20:18 05/29/23 21:22 Calcium Carbonat e 500 Mg Chew Tabl et PO 1,000 mg Q4H PRN Administration HEARTBURN Diltiazem HCl 60 mg 05/28/23 11:00 05/30/23 11:08 Diltiazem 60 Mg Tablet PO 60 mg Q6H PETER Administration Divalproex Sodium 1,500 mg 05/26/23 21:00 05/29/23 22:[address] 50 0 Mg Tablet PO 1,500 mg BEDTIME PETER Administration Doxycycline Monohy drate 100 mg 05/26/23 09:00 05/30/23 09:16 Doxycycline 100 Mg Tablet PO 100 mg BID PETER Administration Protocol Ceftriaxone Sodium 1,000 mg/ 50 mls @ 100 mls/ hr 05/26/23 05:00 05/30/23 06:35 Sodium Chloride IV Infused Q24H PETER Infusion Protocol Diltiazem HCl 100 mg/ Sodium 100 mls @ 0 mls/h r 05/28/23 05:30 05/28/23 13:43 Chloride IV Infused .Q0M PETER Titration Protocol Per Protocol Metoprolol Tartrat e 50 mg 05/28/23 13:15 05/30/23 06:40 Metoprolol Tartr ate 50 Mg Tablet PO 50 mg Q6H PETER Administration Olanzapine 10 mg 05/26/23 21:00 05/29/23 22:49 Olanzapine 10 Mg Tablet PO 10 mg BEDTIME PETER Administration Pantoprazole Sodiu m 40 mg 05/26/23 09:00 05/30/23 09:[address] 40 Mg Tablet PO 40 mg DAILY PETER Administration Zonisamide 400 mg 05/26/23 09:00 05/30/23 09:16 Zonisamide 100 M g Capsule PO 400 mg DAILY PETER Administration Vitals/I&O/Wt Last Vital Signs Temp 98.0 F 05/30/23 08:00 Pulse 73 05/30/23 11:13 Resp 20 H 05/30/23 11:13 BP 115/74 05/30/23 11:13 Pulse Ox 93 05/30/23 11:13 O2 Del Method Nasal Cannula 05/30/23 11:13 O2 Flow Rate 2 05/30/23 08:54 05/29/23 05/30/23 05/30/23 22:59 06:59 14:59 Intake Total 480 / 1440 50 / 1490 360 / 360 Output Total 1350 / 1350 Balance 480 / 1440 -1300 / 140 360 / 360 Physical Exam HENMT: COMMON NORMALS: normocephalic, atraumatic, hearing grossly normal bilaterally and external ears normal HEAD & SCALP: normocephalic and atraumatic EXTERNAL EAR: Yes external ears normal Resp: COMMON NORMALS: normal respiratory effort, No retractions, No use of accessory muscles and clear to auscultation bilaterally EFFORT & INSPECTION: Yes symmetric chest movement AUSCULTATION: clear to auscultation bilaterally Cardio: OTHER: Irregularly irregular rhythm S1-S2 of variable intensity GI: COMMON NORMALS: Normal to inspection, nondistended, normoactive bowel sounds present, Soft to palpation, non-tender, No hepatosplenomegaly present and no masses AUSCULTATION: Yes normoactive bowel sounds PALPATION: Yes Soft to palpation and Yes No hepatosplenomegaly present RECTAL EXAM: Yes deferred Extremity: COMMON NORMALS: no clubbing, cyanosis or edema and no pedal edema Data 05/29/23 02:29 05/29/23 02:29 Micro: Microbiology 05/29/23 14:22 Blood Culture - Preliminary Blood SPECIMEN COLLECTED 05/29/23 14:17 Blood Culture - Preliminary Blood SPECIMEN COLLECTED A&P Assessment and plan (1) Fever: 38-year-old male presenting to the hospital with 3 days of generalized weakness, malaise, fever and chills. On admission he had mild leukocytosis, lactic acidosis on evaluation. With Tmax of 103.1 Fahrenheit. Symptoms could be secondary to infectious cause versus heat exhaustion. Sepsis present on admission. Ruled in by lactic acidosis, tachycardia, high-grade fever, leukocytosis. Has resolved now. Source is currently under evaluation. Blood cultures: Negative Follow repeat blood culture Urinalysis: Clean 2D echo: Normal LV size systolic function and wall thickness, no RWMA, LVEF 65%, no significant valvular abnormality. chest x-ray has not shown any infiltrate effusion or consolidation Respiratory viral panel negative. Tick panel pending. sputum culture: Continue with empiric ceftriaxone and doxycycline. (2) Atrial tachycardia: resolved after iv hydration (3) Lactic acidosis: (4) Acute kidney injury superimposed on CKD: (5) Atrial fibrillation with RVR: No prior history of A-fib, follow-up 2D echo: Reviewed He was initially on Cardizem drip, has been transitioned to p.o. Cardizem as well as p.o. metoprolol. Currently heart rate is decently controlled. Plan USMAN on CKD: Baseline creatinine seems to be around 1.4. Currently 1.8 on admission. Most likely in setting of dehydration. Initially was on IV fluids, has been stopped, avoid nephrotoxic, assess urine electrolytes, monitor intake output chart. Hold off on home dose of telmisartan for now. History of drug abuse: Urine drug screen is positive for barbiturates Bipolar disorder. Hypertension: Goal blood pressure less than 140/90 mmHg. Continue with home dose of metoprolol 50 mg twice daily. Holding on on telmisartan. Continue to monitor and if needed can add amlodipine. Full code. Protonix for PUD prophylaxis Eliquis will suffice for DVT prophylaxis. Disposition: If patient continues to remain afebrile, overnight, and the heart rate is decently controlled, will plan to discharge him tomorrow morning. Attestations Medical Necessity Statement*: In hospital for IV antibiotics. Coding Level of Care Code Acute Code for [facility] Fwd Diagnoses Fever R50.9 Atrial tachycardia I47.1 Lactic acidosis E87.20 Acute kidney injury superimposed on CKD N17.9; N18.9 Atrial fibrillation with RVR I48.91
[2023-05-30] MEDS: divalproex DR 500 mg Tablet 1500 MG PO (20:29)
[2023-05-30] MEDS: atorvastatin 40 mg Tablet 20 MG PO (20:29)
[2023-05-30] MEDS: OLANZapine 10 mg TABLET PO (20:29)
[2023-05-31] VITALS (15 sets, daily range): BP systolic 100–132; BP diastolic 73–86; PULSE 66–111; RESP 16–28; TEMP 36.5–37; O2SAT 90–95
[2023-05-31] MEDS: metoprolol tartrate 50 mg Tablet PO (02:12)
[2023-05-31] MEDS: ipratropium-albuterol 3 mL Neb INHALATION ×3 (02:45→13:19)
[2023-05-31] MEDS: dilTIAZem 60 mg Tablet PO (05:24)
[2023-05-31] MEDS: cefTRIAXone 1,000 MG in sodium chloride 0.9% (plus) 50 ML 100 MG IV (05:24)
[2023-05-31] MEDS: budesonide 0.5 mg/2 mL Neb INHALATION (08:43)
[2023-05-31] MEDS: zonisamide 100 MG Capsule 400 MG PO (09:10)
[2023-05-31] MEDS: pantoprazole DR 40 mg Tablet PO (09:10)
[2023-05-31] MEDS: doxycycline 100 mg Tablet PO ×2 (09:10→17:36)
[2023-05-31] MEDS: metoprolol succinate ER (24 HR) 100 mg Tablet PO ×2 (09:10→20:10)
[2023-05-31] MEDS: apixaban 5 mg Tablet PO ×2 (09:10→17:36)
--- NOTE | 2023-05-31 10:42 | PC.SOCIAL ---
[facility] IMM update: pg 2 of Imm dated and reviewed with pt. Copy provided. Copy dated, initialed and placed in chart. [id number]
[2023-05-31] MEDS: dilTIAZem ER (24HR) 240 mg Capsule PO (13:03)
[2023-05-31 16:49] LABS: E. Chaffeensis AB IGG <1:64; E. Chaffeensis AB IGM <1:20
--- NOTE | 2023-05-31 17:55 | P.PN_ITS ---
Subjective Subjective: Patient was seen and examined this morning, has been afebrile, continue to go intermittently into A-fib with RVR during those episodes complains of some shortness of breath. Will switch him today to Cardizem CD 240 MG PO Daily as well as metoprolol succinate 100 p.o. twice daily, if patient continues to go into A-fib with RVR will start him on flecainide. Medications: Reviewed: Yes Medication Review Details: Generic Name Dose Route Start Last Admin Trade Name Freduran PRN Reason Stop Dose Admin Acetaminophen 650 mg 05/25/23 20:01 05/29/23 03:19 Acetaminophen 32 5 Mg Tablet PO 650 mg Q6H PRN Administration Mild/Mod Pain Or Temp >/= 101 Albuterol/Ipratrop ium 3 ml 05/26/23 04:45 05/31/23 13:19 Ipratropium-Albu terol 3 Ml Neb INHALATION 3 ml Q6H.RESP PETER Administration Apixaban 5 mg 05/26/23 09:00 05/31/23 17:36 Apixaban 5 Mg Ta blet PO 5 mg BID PETER Administration Atorvastatin Calci um 20 mg 05/26/23 21:00 05/30/23 20:29 Atorvastatin 40 Mg Tablet PO 20 mg BEDTIME PETER Administration Budesonide 0.5 mg 05/26/23 08:00 05/31/23 08:43 Budesonide 0.5 M g/2 Ml Neb INHALATION 0.5 mg BID.RESPIRATORY S CH Administration Calcium Carbonate 1,000 mg 05/29/23 20:18 05/29/23 21:22 Calcium Carbonat e 500 Mg Chew Tabl et PO 1,000 mg Q4H PRN Administration HEARTBURN Diltiazem HCl 240 mg 05/31/23 12:00 05/31/23 13:03 Diltiazem Er (24 hr) 240 Mg Capsule PO 240 mg DAILY PETER Administration Divalproex Sodium 1,500 mg 05/26/23 21:00 05/30/23 20:[address] 50 0 Mg Tablet PO 1,500 mg BEDTIME PETER Administration Doxycycline Monohy drate 100 mg 05/26/23 09:00 05/31/23 17:36 Doxycycline 100 Mg Tablet PO 100 mg BID PETER Administration Protocol Ceftriaxone Sodium 1,000 mg/ 50 mls @ 100 mls/ hr 05/26/23 05:00 05/31/23 05:24 Sodium Chloride IV 100 mls/hr Q24H PETER Administration Protocol Diltiazem HCl 100 mg/ Sodium 100 mls @ 0 mls/h r 05/28/23 05:30 05/28/23 13:43 Chloride IV Infused .Q0M PETER Titration Protocol Per Protocol Olanzapine 10 mg 05/26/23 21:00 05/30/23 20:29 Olanzapine 10 Mg Tablet PO 10 mg BEDTIME PETER Administration Pantoprazole Sodiu m 40 mg 05/26/23 09:00 05/31/23 09:[address] 40 Mg Tablet PO 40 mg DAILY PETER Administration Zonisamide 400 mg 05/26/23 09:00 05/31/23 09:10 Zonisamide 100 M g Capsule PO 400 mg DAILY PETER Administration Vitals/I&O/Wt Last Vital Signs Temp 97.7 F 05/31/23 15:50 Pulse 84 05/31/23 15:50 Resp 17 05/31/23 15:50 BP 121/86 05/31/23 15:50 Pulse Ox 91 05/31/23 15:50 O2 Del Method Room Air 05/31/23 15:50 O2 Flow Rate 1 05/30/23 14:00 05/31/23 05/31/23 05/31/23 06:59 14:59 22:59 Intake Total 2360 / 3200 600 / 600 Output Total 625 / 950 Balance 1735 / 2250 600 / 600 Physical Exam HENMT: COMMON NORMALS: normocephalic and atraumatic HEAD & SCALP: normocep halic and atraumatic Resp: COMMON NORMALS: normal respiratory effort, No retractions, No use of accessory muscles and clear to auscultation bilaterally EFFORT & INSPECTION: Yes symmetric chest movement AUSCULTATION: clear to auscultation bilaterally Cardio: OTHER: Irregularly irregular rhythm S1-S2 of variable intensity GI: COMMON NORMALS: Normal to inspection, nondistended, normoactive bowel sounds present, Soft to palpation, non-tender, No hepatosplenomegaly present and no masses AUSCULTATION: Yes normoactive bowel sounds PALPATION: Yes Soft to palpation and Yes No hepatosplenomegaly present RECTAL EXAM: Yes deferred Extremity: COMMON NORMALS: no clubbing, cyanosis or edema and no pedal edema Data 05/29/23 02:29 05/29/23 02:29 Micro: Microbiology 05/25/23 15:26 Blood Culture - Final Blood NO GROWTH AFTER 5 DAYS 05/25/23 15:33 Blood Culture - Final Blood NO GROWTH AFTER 5 DAYS 05/29/23 14:22 Blood Culture - Preliminary Blood NEGATIVE TO DATE 05/29/23 14:17 Blood Culture - Preliminary Blood NEGATIVE TO DATE A&P Assessment and plan (1) Fever: 38-year-old male presenting to the hospital with 3 days of generalized weakness, malaise, fever and chills. On admission he had mild leukocytosis, lactic acidosis on evaluation. With Tmax of 103.1 Fahrenheit. Symptoms could be secondary to infectious cause versus heat exhaustion. Sepsis present on admission. Ruled in by lactic acidosis, tachycardia, high- grade fever, leukocytosis. Has resolved now. Source is currently under evaluation. Blood cultures: Negative Follow repeat blood culture:NTD Urinalysis: Clean 2D echo: Normal LV size systolic function and wall thickness, no RWMA, LVEF 65%, no significant valvular abnormality. chest x-ray has not shown any infiltrate effusion or consolidation Respiratory viral panel negative. Tick panel pending. Reported results have been reviewed. sputum culture: Continue with empiric ceftriaxone and doxycycline. (2) Atrial tachycardia: resolved after iv hydration (3) Lactic acidosis: (4) Acute kidney injury superimposed on CKD: (5) Atrial fibrillation with RVR: No prior history of A-fib, follow-up 2D echo: Reviewed He was initially on Cardizem drip, has been transitioned to p.o. Cardizem as well as p.o. metoprolol. Plan USMAN on CKD: Baseline creatinine seems to be around 1.4. Currently 1.8 on admission. Most likely in setting of dehydration. Initially was on IV fluids, has been stopped, avoid nephrotoxic, assess urine electrolytes, monitor intake output chart. Hold off on home dose of telmisartan for now. History of drug abuse: Urine drug screen is positive for barbiturates Bipolar disorder. Hypertension: Goal blood pressure less than 140/90 mmHg. Continue with home dose of metoprolol 50 mg twice daily. Holding on on telmisartan. Continue to monitor and if needed can add amlodipine. Full code. Protonix for PUD prophylaxis Eliquis will suffice for DVT prophylaxis. Disposition: If patient continues to remain afebrile, overnight, and the heart rate is decently controlled, will plan to discharge him tomorrow morning. Attestations Medical Necessity Statement*: Needs to be in hospital for management of A-fib. Coding Level of Care Code Acute Code for Chg Fwd Diagnoses Fever R50.9 Atrial tachycardia I47.1 Lactic acidosis E87.20 Acute kidney injury superimposed on CKD N17.9; N18.9 Atrial fibrillation with RVR I48.91
[2023-05-31] MEDS: divalproex DR 500 mg Tablet 1500 MG PO (20:10)
[2023-05-31] MEDS: atorvastatin 40 mg Tablet 20 MG PO (20:10)
[2023-05-31] MEDS: OLANZapine 10 mg TABLET PO (20:11)
[2023-05-31 21:24] LABS: RMSF IGG NOT DETECTED; RMSF IGM NOT DETECTED
[2023-06-01] VITALS (16 sets, daily range): BP systolic 117–134; BP diastolic 76–88; PULSE 66–101; RESP 18–23; TEMP 36.6–36.8; O2SAT 92–97
[2023-06-01] MEDS: ipratropium-albuterol 3 mL Neb INHALATION ×2 (02:15→07:47)
[2023-06-01] MEDS: cefTRIAXone 1,000 MG in sodium chloride 0.9% (plus) 50 ML 100 MG IV (04:20)
[2023-06-01] MEDS: budesonide 0.5 mg/2 mL Neb INHALATION ×2 (07:47→20:19)
[2023-06-01] MEDS: doxycycline 100 mg Tablet PO (08:14)
[2023-06-01] MEDS: zonisamide 100 MG Capsule 400 MG PO (08:14)
[2023-06-01] MEDS: apixaban 5 mg Tablet PO ×2 (08:14→18:45)
[2023-06-01] MEDS: dilTIAZem ER (24HR) 240 mg Capsule PO (08:14)
[2023-06-01] MEDS: pantoprazole DR 40 mg Tablet PO (08:14)
[2023-06-01] MEDS: metoprolol succinate ER (24 HR) 100 mg Tablet PO ×2 (08:14→20:41)
[2023-06-01 08:25] LABS: Basophils # 0.1 10^3/uL (0.0-0.1); Basophils % 0.8 %; Eosinophils # 0.6 10^3/uL (0.0-0.8); Eosinophils % 6.3 %; Hematocrit 45.6 % (42.0-52.0); Hemoglobin 13.1 g/dL (11.7-16.6); Lymphocytes # 3.5 10^3/uL (0.8-4.8); Lymphocytes % 34.4 %; Mean Corpuscular HGB Conc 28.7 g/dL (30.0-36.0); Mean Corpuscular Hemoglobin 29.5 pg (28.0-34.0); Mean Corpuscular Volume 102.7 fl (80-94); Mean Platelet Volume 9.5 fL (7.4-10.4); Monocytes # 0.8 10^3/uL (0.2-0.9); Monocytes % 8.2 %; Neutrophils # 4.95 10^3/uL (1.8-7.7); Neutrophils % 48.4 %; Nucleated Red Blood Cells % 0 %; Platelet Count 275 10^3/cmm (130-400); Red Blood Count 4.44 10^6/uL (4.1-5.3); Red Cell Distribution Width 14.9 % (12.1-15.1); White Blood Count 10.2 10^3/uL (4.0-10.0)
[2023-06-01 08:46] LABS: Anion Gap 17.1 (5-19); Blood Urea Nitrogen 19 mg/dL (6-20); Calcium 9.6 mg/dL (8.5-10.5); Carbon Dioxide 21 mmol/L (22-29); Chloride 106 mmol/L (98-107); Glomerular Filtration Rate 51.9 mL/min (90-130); Glucose 79 mg/dL (65-115); Osmolality Calculated 291 mOsm/kg (285-295); Potassium 4.1 mmol/L (3.5-5.1); Sodium 140 mmol/L (136-145)
--- NOTE | 2023-06-01 08:58 | PC.NURSE ---
A. Fib noted.... Pt given morning medications and breakfast was being served. As the pt scooted up in bed, he exerted himself and went into A. Fib w/ RVR and HR was 110's-130's. After about 2 minutes, the pt started settling down and HR remained in the low 100's. Pt appeared to be trying to convert back into NSR but was flipping back and forth between A. Fib and NSR. Dr. Prado was notified.
[2023-06-01 09:01] LABS: Magnesium 2.1 mg/dL (1.7-2.3)
[2023-06-01] MEDS: flecainide 100 mg Tablet 50 MG PO ×2 (11:13→18:45)
--- NOTE | 2023-06-01 14:29 | P.PN_ITS ---
Subjective Subjective: Patient was seen and examined this morning, he went into A-fib with RVR again this morning, has been started on flecainide. Medications: Reviewed: Yes Medication Review Details: Generic Name Dose Route Start Last Admin Trade Name Freq PRN Reason Stop Dose Admin Acetaminophen 650 mg 05/25/23 20:01 05/29/23 03:19 Acetaminophen 32 5 Mg Tablet PO 650 mg Q6H PRN Administration Mild/Mod Pain Or Temp >/= 101 Apixaban 5 mg 05/26/23 09:00 06/01/23 08:14 Apixaban 5 Mg Ta blet PO 5 mg BID PETER Administration Atorvastatin Calci um 20 mg 05/26/23 21:00 05/31/23 20:10 Atorvastatin 40 Mg Tablet PO 20 mg BEDTIME PETER Administration Budesonide 0.5 mg 05/26/23 08:00 06/01/23 07:47 Budesonide 0.5 M g/2 Ml Neb INHALATION 0.5 mg BID.RESPIRATORY S CH Administration Calcium Carbonate 1,000 mg 05/29/23 20:18 05/29/23 21:22 Calcium Carbonat e 500 Mg Chew Tabl et PO 1,000 mg Q4H PRN Administration HEARTBURN Diltiazem HCl 240 mg 05/31/23 12:00 06/01/23 08:14 Diltiazem Er (24 hr) 240 Mg Capsule PO 240 mg DAILY PETER Administration Divalproex Sodium 1,500 mg 05/26/23 21:00 05/31/23 20:[address] 50 0 Mg Tablet PO 1,500 mg BEDTIME PETER Administration Flecainide Acetate 50 mg 06/01/23 10:55 06/01/23 11:13 Flecainide 100 M g Tablet PO 50 mg BID PETER Administration Ceftriaxone Sodium 1,000 mg/ 50 mls @ 100 mls/ hr 05/26/23 05:00 06/01/23 04:55 Sodium Chloride IV Infused Q24H PETER Infusion Protocol Diltiazem HCl 100 mg/ Sodium 100 mls @ 0 mls/h r 05/28/23 05:30 05/28/23 13:43 Chloride IV Infused .Q0M PETER Titration Protocol Per Protocol Metoprolol Succina te 100 mg 05/31/23 21:00 06/01/23 08:14 Metoprolol Succi herbert Er (24 Hr) 10 0 Mg Tablet PO 100 mg Q12H PETER Administration Olanzapine 10 mg 05/26/23 21:00 05/31/23 20:11 Olanzapine 10 Mg Tablet PO 10 mg BEDTIME PETER Administration Pantoprazole Sodiu m 40 mg 05/26/23 09:00 06/01/23 08:[address] 40 Mg Tablet PO 40 mg DAILY PETER Administration Zonisamide 400 mg 05/26/23 09:00 06/01/23 08:14 Zonisamide 100 M g Capsule PO 400 mg DAILY PETER Administration Vitals/I&O/Wt Last Vital Signs Temp 97.9 F 06/01/23 08:00 Pulse 73 06/01/23 12:00 Resp 22 H 06/01/23 12:00 BP 118/76 06/01/23 12:00 Pulse Ox 94 06/01/23 12:00 O2 Del Method Room Air 06/01/23 12:00 O2 Flow Rate 1 05/30/23 14:00 05/31/23 06/01/23 06/01/23 22:59 06:59 14:59 Intake Total 1095 / 1695 50 / 1745 1045 / 1045 Balance 1095 / 1695 50 / 1745 1045 / 1045 Physical Exam HENMT: COMMON NORMALS: normocephalic, atraumatic, hearing grossly normal bilaterally and external ears normal HEAD & SCALP: normocephalic and atraumatic EXTERNAL EAR: Yes external ears normal Resp: COMMON NORMALS: normal respiratory effort, No retractions, No use of accessory muscles and clear to auscultation bilaterally EFFORT & INSPECTION: Yes symmetric chest movement AUSCULTATION: clear to auscultation bilaterally Cardio: OTHER: Irregularly irregular rhythm S1-S2 of variable intensity GI: COMMON NORMALS: Normal to inspection, nondistended, normoactive bowel sounds present, Soft to palpation, non-tender, No hepatosplenomegaly present and no masses AUSCULTATION: Yes normoactive bowel sounds PALPATION: Yes Soft to palpation and Yes No hepatosplenomegaly present RECTAL EXAM: Yes deferred Extremity: COMMON NORMALS: no clubbing, cyanosis or edema and no pedal edema Data 06/01/23 08:12 06/01/23 08:12 A&P Assessment and plan (1) Fever: 38-year-old male presenting to the hospital with 3 days of generalized weakness, malaise, fever and chills. On admission he had mild leukocytosis, lactic acidosis on evaluation. With Tmax of 103.1 Fahrenheit. Symptoms could be secondary to infectious cause versus heat exhaustion. Sepsis present on admission. Ruled in by lactic acidosis, tachycardia, high- grade fever, leukocytosis. Has resolved now. Source is currently under evaluation. Blood cultures: Negative Follow repeat blood culture:NTD Urinalysis: Clean 2D echo: Normal LV size systolic function and wall thickness, no RWMA, LVEF 65%, no significant valvular abnormality. chest x-ray has not shown any infiltrate effusion or consolidation Respiratory viral panel negative. Tick panel pending. Reported results have been reviewed. sputum culture: Continue with empiric ceftriaxone and doxycycline. (2) Atrial tachycardia: resolved after iv hydration (3) Lactic acidosis: (4) Acute kidney injury superimposed on CKD: (5) Atrial fibrillation with RVR: No prior history of A-fib, follow-up 2D echo: Reviewed He was initially on Cardizem drip, has been transitioned to p.o. Cardizem as we ll as p.o. metoprolol. Has also been started on flecainide. We will plan to discharge him on flecainide 50 mg p.o. twice daily and follow-up with cardiology as outpatient. Plan USMAN on CKD: Baseline creatinine seems to be around 1.4. Currently 1.8 on admission. Most likely in setting of dehydration. Initially was on IV fluids, has been stopped, avoid nephrotoxic, assess urine electrolytes, monitor intake output chart. Hold off on home dose of telmisartan for now. History of drug abuse: Urine drug screen is positive for barbiturates Bipolar disorder. Hypertension: Goal blood pressure less than 140/90 mmHg. Continue with home dose of metoprolol 50 mg twice daily. Holding on on telmisartan. Continue to monitor and if needed can add amlodipine. Full code. Protonix for PUD prophylaxis Eliquis will suffice for DVT prophylaxis. Disposition: If patient continues to remain afebrile, overnight, and the heart rate is decently controlled, will plan to discharge him tomorrow morning. Attestations Medical Necessity Statement*: Needs to be in hospital for management of A-fib with RVR. Coding Level of Care Code Acute Code for Chg Fwd Diagnoses Fever R50.9 Atrial tachycardia I47.1 Lactic acidosis E87.20 Acute kidney injury superimposed on CKD N17.9; N18.9 Atrial fibrillation with RVR I48.91
[2023-06-01 15:20] LABS: Potassium, Radom Urine 16 mmol/L; Urine Creatinine 44 mg/dL (39-259); Urine Random Chloride 38 mmol/L; Urine Random Sodium 45 mmol/L
[2023-06-01] MEDS: levalbuterol 1.25 mg/3 mL Neb INHALATION ×2 (15:23→20:18)
[2023-06-01] MEDS: ipratropium 0.5 mg/2.5 mL Neb INHALATION ×2 (15:23→20:18)
[2023-06-01 16:05] LABS: Eosinophil Urine No Eosinophils Seen; Urine Eosinophil Count 0 (0-0)
[2023-06-01] MEDS: atorvastatin 40 mg Tablet 20 MG PO (20:41)
[2023-06-01] MEDS: OLANZapine 10 mg TABLET PO (20:41)
[2023-06-01] MEDS: divalproex DR 500 mg Tablet 1500 MG PO (20:41)
[2023-06-02] VITALS (8 sets, daily range): BP systolic 106–117; BP diastolic 71–78; PULSE 60–72; RESP 16–30; TEMP 36.6–36.9; O2SAT 92–96
[2023-06-02] MEDS: cefTRIAXone 1,000 MG in sodium chloride 0.9% (plus) 50 ML 100 MG IV (04:13)
[2023-06-02 04:44] LABS: Blood Urea Nitrogen 22 mg/dL (6-20); Carbon Dioxide 24 mmol/L (22-29); Chloride 106 mmol/L (98-107); Glomerular Filtration Rate 47.9 mL/min (90-130); Glucose 86 mg/dL (65-115); Magnesium 1.9 mg/dL (1.7-2.3); Osmolality Calculated 295 mOsm/kg (285-295); Sodium 141 mmol/L (136-145)
[2023-06-02] MEDS: levalbuterol 1.25 mg/3 mL Neb INHALATION (07:40)
[2023-06-02] MEDS: budesonide 0.5 mg/2 mL Neb INHALATION (07:40)
[2023-06-02] MEDS: ipratropium 0.5 mg/2.5 mL Neb INHALATION (07:40)
[2023-06-02] MEDS: flecainide 100 mg Tablet 50 MG PO (08:40)
[2023-06-02] MEDS: dilTIAZem ER (24HR) 240 mg Capsule PO (08:40)
[2023-06-02] MEDS: apixaban 5 mg Tablet PO (08:40)
[2023-06-02] MEDS: metoprolol succinate ER (24 HR) 100 mg Tablet PO (08:40)
[2023-06-02] MEDS: zonisamide 100 MG Capsule 400 MG PO (08:40)
[2023-06-02] MEDS: pantoprazole DR 40 mg Tablet PO (08:40)
--- NOTE | 2023-06-02 09:04 | PC.SOCIAL ---
IMM Updated Updated pt on IMM. No questions voiced. Provided pt a copy. Initialed, dated, & timed copy in chart.
--- NOTE | 2023-06-02 13:04 | PM.PN ---
Vitals/I&O/Wt Last Vital Signs Temp 97.9 F 06/02/23 08:00 Pulse 71 06/02/23 08:00 Resp 19 H 06/02/23 08:00 BP 116/72 06/02/23 08:00 Pulse Ox 94 06/02/23 08:00 O2 Del Method Room Air 06/02/23 08:00 O2 Flow Rate 1 05/30/23 14:00 06/01/23 06/02/23 06/02/23 22:59 06:59 14:59 Intake Total 840 / 1885 350 / 2235 360 / 360 Balance 840 / 1885 350 / 2235 360 / 360 Data 06/01/23 08:12 06/02/23 03:19 Coding Level of Care Code Acute Code for Chg Fwd Diagnoses
--- NOTE | 2023-06-02 14:16 | P.CONIM_ITS ---
Providers/Reason For Consult Consulting Physician/Specialty*: Dr. Garner, Cardiology Reason for Consult*: Paroxysmal atrial fibrillation Attending Physician: Travis Prado MD Primary Care Provider: KIRSTEN Duong History of Present Illness History of Present Illness Jamal Lama is a 58 year old male who was admitted with 3 days of generalized weakness, malaise, fever and chills, He was treated for sepsis. Echo: Normal LV size systolic function and wall thickness, no RWMA, LVEF 65%, no significant valvular abnormality..? During the hospital stay patient was also managed for A- fib with RVR. He was kept on Cardizem, metoprolol, given the fact that he was intermittently breaking into A-fib with RVR. He was started on Flecainide and I was consulted to ensure patient has timely follow up an monitoring after initiation of antiarrhythmic. He is in SR at the time of exam. Mother and by bedside at the time of exam Review of Systems Const: Denies: fatigue Eyes: Denies: change in vision ENMT: Denies: throat pain, bleeding gums or epistaxis Card: Denies: chest pain, palpitations, irregular heart rhythm, edema, swelling of feet/ankles, lightheadedness, syncope, pre-syncope, dyspnea on exertion or orthopnea Resp: Denies: dyspnea, productive cough or non-productive cough GI: Denies: abdominal pain, nausea, vomiting, hematemesis, diarrhea, constipation or hematochezia : Denies: dysuria or hematuria Musc: Denies: back pain, extremity swelling, joint pain or muscle weakness Skin/Breast: Denies: rash Neuro: Denies: dizziness Psych: Denies: anxiety or depression Endo: Denies: tired all the time Hever/Lymph: Denies: easy bruising or easy bleeding Medications/Allergies Home Medications Medication Instructions Recorded Confirmed Last Taken Type simvastatin 20 mg tablet 20 mg PO .QHS 11/25/19 06/06/23 Unknown History sumatriptan succinate 100 mg tablet 100 mg PO Q2H PRN migraine 03/30/20 06/06/23 Unknown Rx headache #9 tabs albuterol sulfate 90 mcg/actuation 2 inh inhalation QID 06/21/21 06/06/23 Unknown History breath activated powder inhaler,sensor apixaban 5 mg tablet (Eliquis) 5 mg PO BID 06/21/21 06/06/23 Unknown History fluticasone propionate 110 2 puff inhalation BID 06/21/21 06/06/23 Unknown History mcg/actuation HFA aerosol inhaler pantoprazole 40 mg tablet,delayed 40 mg PO DAILY 06/21/21 06/06/23 Unknown History release loratadine 10 mg tablet 10 mg PO DAILY #30 tabs 01/09/23 06/06/23 Unknown Rx eszopiclone 1 mg tablet (Lunesta) 1 mg PO .HS PRN insomnia #30 tabs 04/24/23 06/06/23 Unknown Rx olanzapine 10 mg tablet (Zyprexa) 10 mg PO .qhs #30 tabs 04/24/23 06/06/23 Unknown Rx olanzapine 20 mg tablet 20 mg PO .q hs #30 tabs 04/24/23 06/06/23 Unknown Rx trazodone 100 mg tablet 100 mg PO .q hs PRN insomnia #30 04/24/23 06/06/23 Unknown Rx tabs divalproex 500 mg tablet,delayed See Rx Instructions .Route 05/08/23 06/06/23 Unknown Rx release .COMPLEX #270 tabs primidone 50 mg tablet See Rx Instructions .Route 05/08/23 06/06/23 Unknown Rx .COMPLEX #180 tabs zonisamide 100 mg capsule See Rx Instructions .Route 05/08/23 06/06/23 Unknown Rx .COMPLEX #360 caps diltiazem HCl 240 mg 240 mg PO DAILY 30 days #30 caps 06/02/23 06/06/23 Unknown Rx capsule,extended release 24 hr metoprolol succinate 100 mg 100 mg PO Q12H 30 days #60 tabs 06/02/23 06/06/23 Unknown Rx tablet,extended release 24 hr Allergies Allergy/AdvReac Type Severity Reaction Status Date / Time aspirin AdvReac Intermediate Itching & Verified 06/06/23 11:25 rash Current Medications Generic Name Dose Route Start Last Admin Trade Name Freq PRN Reason Stop Dose Admin Acetaminophen 650 mg 05/25/23 20:01 05/29/23 03:19 Acetaminophen 325 Mg Tablet PO 650 mg Q6H PRN Administration Mild/Mod Pain Or Temp >/= 101 Apixaban 5 mg 05/26/23 09:00 06/02/23 08:40 Apixaban 5 Mg Tablet PO 5 mg BID PETER Administration Atorvastatin Calcium 20 mg 05/26/23 21:00 06/01/23 20:41 Atorvastatin 40 Mg Tablet PO 20 mg BEDTIME PETER Administration Budesonide 0.5 mg 05/26/23 08:00 06/02/23 07:40 Budesonide 0.5 Mg/2 Ml Neb INHALATION 0.5 mg BID.RESPIRATORY PETER Administration Calcium Carbonate 1,000 mg 05/29/23 20:18 05/29/23 21:22 Calcium Carbonate 500 Mg Chew Tablet PO 1,000 mg Q4H PRN Administration HEARTBURN Diltiazem HCl 240 mg 05/31/23 12:00 06/02/23 08:40 Diltiazem Er (24hr) 240 Mg Capsule PO 240 mg DAILY PETER Administration Divalproex Sodium 1,500 mg 05/26/23 21:00 06/01/23 20:[address] 500 Mg Tablet PO 1,500 mg BEDTIME PETER Administration Flecainide Acetate 50 mg 06/01/23 10:55 06/02/23 08:40 Flecainide 100 Mg Tablet PO 50 mg BID PETER Administration Ceftriaxone Sodium 1,000 mg/ 50 mls @ 100 mls/hr 05/26/23 05:00 06/02/23 05:02 Sodium Chloride IV Infused Q24H PETER Infusion Protocol Diltiazem HCl 100 mg/ Sodium 100 mls @ 0 mls/hr 05/28/23 05:30 05/28/23 13:43 Chloride IV Infused .Q0M PETER Titration Protocol Per Protocol Ipratropium [place] 0.5 mg 06/01/23 14:00 06/02/23 13:54 Ipratropium 0.5 Mg/2.5 Ml Neb INHALATION Not Given Q6H.RESP PETER Levalbuterol HCl 1.25 mg 06/01/23 14:00 06/02/23 13:54 Levalbuterol 1.25 Mg/3 Ml Neb INHALATION Not Given Q6H.RESP PETER Metoprolol Succinate 100 mg 05/31/23 21:00 06/02/23 08:40 Metoprolol Succinate Er (24 Hr) 100 Mg Tablet PO 100 mg Q12H PETER Administration Olanzapine 10 mg 05/26/23 21:00 06/01/23 20:41 Olanzapine 10 Mg Tablet PO 10 mg BEDTIME PETER Administration Pantoprazole Sodium 40 mg 05/26/23 09:00 06/02/23 08:[address] 40 Mg Tablet PO 40 mg DAILY PETER Administration Zonisamide 400 mg 05/26/23 09:00 06/02/23 08:40 Zonisamide 100 Mg Capsule PO 400 mg DAILY PETER Administration PFSH Acute PFSH: Medical History (Updated 06/06/23 @ 22:55 by Estefany Garner MD) Acute kidney injury superimposed on CKD Amphetamine use disorder, moderate, in early remission Atrial fibrillation Atrial fibrillation with RVR Atrial tachycardia Bipolar I disorder, most recent episode manic, in full remission See subjective information below Chronic migraine without aura, intractable, with status migrainosus CKD (chronic kidney disease) Essential tremor Fever Generalized epilepsy Hypertension Lactic acidosis Psychiatric care Social History Smoking and tobacco status: never smoked Quit status (tobacco): has quit using tobacco Year quit tobacco: 10 years Second hand smoke exposure: No Smoking risk assessment/counseling performed?: No Reason smoking risk assessment not done: other Alcohol intake: never Desire information about alcohol rehabilitation?: No Counseling given: No Vitals/I&O/Wt Last Vital Signs Temp 98.5 F 06/02/23 13:22 Pulse 72 06/02/23 13:22 Resp 24 H 06/02/23 13:22 BP 109/71 06/02/23 13:22 Pulse Ox 92 06/02/23 13:22 O2 Del Method Room Air 06/02/23 12:00 O2 Flow Rate 1 05/30/23 14:00 06/01/23 06/02/23 06/02/23 22:59 06:59 14:59 Intake Total 840 / 1885 350 / 2235 600 / 600 Balance 840 / 1885 350 / 2235 600 / 600 Physical Exam Narrative: GENERAL: Averagely built and averagely nourished in no acute distress HEENT: Extraocular movement intact. No pallor or icterus. NECK: central trachea, No JVD, No carotid bruit. CARDIOVASCULAR SYSTEM: S1-S2 regular No murmur rubs or gallops. RESPIRATORY SYSTEM: Chest clear to auscultation. No wheezes rhonchi or rubs heard. No use of accessory muscles. ABDOMEN: Soft, nontender and nondistended. Normal bowel sounds present. EXTREMITIES: No cyanosis or edema. No signs of chronic venous insufficiency. VASCULAR SURGEON: Patient is alert oriented ?3. SKIN: Normal turgor and temperature. Data 06/01/23 08:12 06/02/23 03:19 A&P Assessment and plan (1) Atrial fibrillation: Patient is on Eliquis for what sounds like DVT, I will continue -continue AV sd blockers and continue Flecainide at present dose -EKG in3-5 days after discharge -will f/u in office for that (2) Hypertension: Qualifiers: Hypertension type: primary hypertension Qualified Code(s): I10 - Essential (primary) hypertension (3) CKD (chronic kidney disease): (4) Generalized epilepsy: Coding Level of Care Code Acute Code for [facility] Diagnoses Atrial fibrillation I48.91 Hypertension I10 Hypertension type: primary hypertension CKD (chronic kidney disease) N18.9 Generalized epilepsy G40.309
--- NOTE | 2023-06-02 16:06 | PM.DCS ---
Discharge Providers Date of Admission: 05/26/23 14:03 Date of Discharge: June 02, 2023 Attending Provider at Admission: Jazmine Diaz MD Attending Provider at Discharge: Travis Prado MD Primary Care Provider: KIRSTEN Duong Diagnoses at Discharge Discharge Diagnosis (1) Atrial fibrillation: Status: Acute (2) CKD (chronic kidney disease): Status: Acute Reason for Visit Reason for Visit: heat exhaustion Hospital Course Hospital Course 38-year-old male presenting to the hospital with 3 days of generalized weakness, malaise, fever and chills. On admission he had mild leukocytosis, lactic acidosis on evaluation.? With Tmax of 103.1 Fahrenheit. Symptoms could be secondary to infectious cause versus heat exhaustion. Sepsis present on admission.Ruled in by lactic acidosis, tachycardia, high-grade fever, leukocytosis.?Blood cultures: Negative, repeat blood culture: Negative,Urinalysis: Clean, source not clear. 2D echo: Normal LV size systolic function and wall thickness, no RWMA, LVEF 65%, no significant valvular abnormality.chest x-ray has not shown any infiltrate effusion or consolidation Respiratory viral panel negative.Tick panel was negative, patient was empirically kept on ceftriaxone and doxycycline, prior to discharge he was afebrile, hemodynamically stable. During the hospital stay patient was also managed for A-fib with RVR, he was kept on Cardizem, metoprolol, given the fact that he was intermittently breaking into A-fib with RVR, after being in sinus rhythm, he was started on p.o. flecainide, 50 mg p.o. twice daily, cardiology was on board, patient will follow pcp/cardiology with repeat EKG in 3 days. At the time of discharge patient was sinus rhythm, patient was also managed for USMAN on CKD, prerenal secondary to dehydration initially on IV fluids, nephrotoxic's were avoided intake output was charted, telmisartan was initially kept on hold, it was discontinued on discharge, as the patient blood pressure was decently controlled on Cardizem and metoprolol, at the time of discharge serum creatinine was at baseline. Overall patient responded well to above medical management, was discharged in stable condition to home. Physical Exam Narrative: NAD HENMT: COMMON NORMALS: normocephalic and atraumatic HEAD & SCALP: normocephalic and atraumatic Resp: COMMON NORMALS: normal respiratory effort, No retractions, No use of accessory muscles and clear to auscultation bilaterally EFFORT & INSPECTION: Yes symmetric chest movement AUSCULTATION: clear to auscultation bilaterally Cardio: COMMON NORMALS: regular rate, regular rhythm, S1 normal heart sound present, S2 normal heart sound present, No gallops present (Cardio), No murmurs present (Cardio), No rub (Cardio) and Peripheral pulses 2+ throughout RATE: regular rate RHYTHM: regular rhythm HEART SOUNDS: S1 normal heart sound present and S2 normal heart sound present PERIPHERAL PULSES: Peripheral pulses 2+ throughout GI: COMMON NORMALS: Normal to inspection, nondistended, normoactive bowel sounds present, Soft to palpation, non-tender, No hepatosplenomegaly present and no masses AUSCULTATION: Yes normoactive bowel sounds PALPATION: Yes Soft to palpation and Yes No hepatosplenomegaly present RECTAL EXAM: Yes deferred Extremity: COMMON NORMALS: no clubbing, cyanosis or edema and no pedal edema Discharge Data Studies Completed and Pending Completed Studies During Hospitalization Category Date Time Status XR chest 1V portable [id number] Stat Exams 05/25/23 15:03 Completed CV. echo complete* [id number] Routine Ultrasound 05/29/23 13:57 Completed Pending at discharge Category Date Time Status Blood Culture Routine Lab 05/29/23 14:22 Results Radiology Impressions Chest X-Ray 05/25/23 15:03 Impression: Negative chest. Laboratory Results WBC 10.2 10^3/uL (4.0-10.0) H 06/01/23 08:12 RBC 4.44 10^6/uL (4.1-5.3) 06/01/23 08:12 Hgb 13.1 g/dL (11.7-16.6) 06/01/23 08:12 Hct 45.6 % (42.0-52.0) 06/01/23 08:12 MCV 102.7 fl (80-94) H 06/01/23 08:12 MCH 29.5 pg (28.0-34.0) 06/01/23 08:12 MCHC 28.7 g/dL (30.0-36.0) L 06/01/23 08:12 RDW 14.9 % (12.1-15.1) 06/01/23 08:12 Plt Count 275 10^3/cmm (130-400) 06/01/23 08:12 MPV 9.5 fL (7.4-10.4) 06/01/23 08:12 Neut % (Auto) 48.4 % 06/01/23 08:12 Lymph % (Auto) 34.4 % 06/01/23 08:12 [place] % (Auto) 8.2 % 06/01/23 08:12 Eos % (Auto) 6.3 % 06/01/23 08:12 Baso % (Auto) 0.8 % 06/01/23 08:12 Neut # (Auto) 4.95 10^3/uL (1.8-7.7) 06/01/23 08:12 Lymph # (Auto) 3.5 10^3/uL (0.8-4.8) 06/01/23 08:12 [place] # (Auto) 0.8 10^3/uL (0.2-0.9) 06/01/23 08:12 Eos # (Auto) 0.6 10^3/uL (0.0-0.8) 06/01/23 08:12 Baso # (Auto) 0.1 10^3/uL (0.0-0.1) 06/01/23 08:12 Nucleated RBC % (auto) 0 % 06/01/23 08:12 Nucleated RBCs # 0.0 /100WBC 06/01/23 08:12 Sodium 141 mmol/L (136-145) 06/02/23 03:19 Potassium 5.0 mmol/L (3.5-5.1) 06/02/23 03:19 Chloride 106 mmol/L (98-107) 06/02/23 03:19 Carbon Dioxide 24 mmol/L (22-29) 06/02/23 03:19 Anion Gap 16.0 (5-19) 06/02/23 03:19 BUN 22 mg/dL (6-20) H 06/02/23 03:19 Creatinine 1.5 mg/dL (0.7-1.2) H 06/02/23 03:19 GFR Calculation 47.9 mL/min (90-130) L 06/02/23 03:19 Glucose 86 mg/dL (65-115) 06/02/23 03:19 POC Glucose 117 mg/dL (70-110) H 05/25/23 14:46 Estimat Average Glucose 111 05/27/23 04:20 Hemoglobin A1c 5.5 % (4.0-6.0) 05/27/23 04:20 Calculated Osmolality 295 mOsm/kg (285-295) 06/02/23 03:19 Lactic Acid 2.4 mmol/L (0.5-2.2) H 05/25/23 15:26 Lactic Acid (Sepsis) 1.8 mmol/L (0.5-2.2) 05/25/23 18:41 Calcium 10.0 mg/dL (8.5-10.5) 06/02/23 03:19 Phosphorus 3.8 mg/dL (2.5-4.5) 05/29/23 02:29 Magnesium 1.9 mg/dL (1.7-2.3) 06/02/23 03:19 Iron 42 ug/dL (59-158) L 05/25/23 14:50 TIBC 271 mcg/dl 05/25/23 14:50 % Saturation 15.4 % (20-50) L 05/25/23 14:50 Unsat Iron Binding 229 ug/dL (112-347) 05/25/23 14:50 Total Bilirubin 0.4 mg/dL (0.15-1.2) 05/29/23 02:29 AST 24 U/L (0-40) 05/29/23 02:29 ALT 17 U/L (0-41) 05/29/23 02:29 Alkaline Phosphatase 114 U/L (40-130) 05/29/23 02:29 Creatine Kinase 92 U/L (39-308) 05/25/23 14:50 CK-MB (CK-2) 1.3 ng/mL (0-10.4) 05/25/23 14:50 CK-MB (CK-2) Rel Index % (0.0-5.3) 05/25/23 14:50 Troponin T Baseline 29 ng/L (0-15) H 05/27/23 07:54 Troponin T 120 Minute 26.51 ng/L (0-15) H 05/27/23 09:58 Delta Troponin T -2.49 ABS# (0-10) L 05/27/23 09:58 Troponin T Hi Sens 6Hr 23.87 ng/L (0-15) H 05/27/23 13:50 Troponin T Hi Sens 6Hr Delta -5.13 ng/L (0-12) L 05/27/23 13:50 NT-Pro-B Natriuret Pep 1011 pg/mL (0-125) H 05/27/23 04:20 Total Protein 6.5 g/dL (6.6-8.7) L 05/29/23 02:29 Albumin 3.5 g/dL (3.5-5.2) 05/29/23 02:29 Globulin 3.0 g/dL (1.3-4.6) 05/29/23 02:29 Triglycerides 109 mg/dL (0-150) 05/27/23 04:20 Cholesterol 141 mg/dL (0-200) 05/27/23 04:20 LDL Cholesterol, Calc 85 mg/dL (50-129) 05/27/23 04:20 Total VLDL Cholesterol 22 mg/dL (0-30) 05/27/23 04:20 HDL Cholesterol 34 mg/dL (60-100) L 05/27/23 04:20 Cholesterol/HDL Ratio 4.15 mg/dL (1.0-5.00) 05/27/23 04:20 Vitamin B12 458 pg/mL (232-1245) 05/25/23 14:50 Folate 11.7 ng/mL (4.5-32.2) 05/27/23 04:20 Procalcitonin 0.20 ng/mL (0-0.5) 05/25/23 14:50 Procalcitonin Cancelled 05/25/23 14:50 TSH 3.34 uIU/mL (0.27-4.20) 05/25/23 14:50 Urine Color Yellow (Yellow) 05/25/23 16:24 Urine Appearance Clear (CLEAR) 05/25/23 16:24 Urine pH 8 (5-7) H 05/25/23 16:24 Ur Specific [place] 1.010 (1.005-1.030) 05/25/23 16:24 Urine Protein Neg (Negative) 05/25/23 16:24 Urine Glucose (UA) Norm (Normal) 05/25/23 16:24 Urine Ketones Negative (Negative) 05/25/23 16:24 Urine Blood Neg (Negative) 05/25/23 16:24 Urine Nitrate Negative (Negative) 05/25/23 16:24 Urine Bilirubin Neg (Negative) 05/25/23 16:24 Prot Sulfosalicylic Acd Negative (Negative) 05/25/23 16:24 Urine Urobilinogen Norm mg/dL (Negative) 05/25/23 16:24 Ur Leukocyte Esterase Negative (Negative) 05/25/23 16:24 Ur Eosinophil Smear 0 (0-0) 05/26/23 14:32 Urine Eosinophils No eosinophils seen 05/26/23 14:32 Ur Random Sodium 45 mmol/L 05/26/23 14:32 Ur Random Potassium 16 mmol/L 05/26/23 14:32 Ur Random Chloride 38 mmol/L 05/26/23 14:32 Urine Creatinine 44 mg/dL (39-259) 05/26/23 14:32 Nasal Influ A H1 2008 PCR Not detected (NOT DETECT) 05/25/23 20:05 Urine Opiates Screen Negative ng/mL (Negative) 05/25/23 16:24 Ur Barbiturates Screen Positive ng/mL (Negative) H 05/25/23 16:24 Ur Phencyclidine Scrn Negative ng/mL (Negative) 05/25/23 16:24 Ur Amphetamines Screen Negative ng/mL (Negative) 05/25/23 16:24 U Benzodiazepines Scrn Negative ng/mL (Negative) 05/25/23 16:24 Urine Cocaine Screen Negative ng/mL (Negative) 05/25/23 16:24 U Marijuana (THC) Screen Negative ng/mL (Negative) 05/25/23 16:24 Ethyl Alcohol < 10 mg/dL (0-10) 05/25/23 14:50 Adenovirus (PCR) Not detected (NOT DETECT) 05/25/23 20:05 Lyme Ab (Western Blot) <0.90 index 05/25/23 14:50 C. pneumoniae DNA (PCR) Not detected (NOT DETECT) 05/25/23 20:05 Coronavirus 229E (PCR) Not detected (NOT DETECT) 05/25/23 20:05 E. chaffeensis IgG Ab <1:64 05/25/23 14:50 E. chaffeensis IgM Ab <1:20 05/25/23 14:50 E. chaffeensis Interp See note 05/25/23 14:50 E. chaffeensis Comment Not Reportable 05/25/23 14:50 Human Metapneumovir PCR Not detected (NOT DETECT) 05/25/23 20:05 Influenza A (H1) PCR Not detected (NOT DETECT) 05/25/23 20:05 Influenza A (H3) PCR Not detected (NOT DETECT) 05/25/23 20:05 Influenza Type A (PCR) Not detected (NOT DETECT) 05/25/23 20:05 Influenza Type B (PCR) Not detected (NOT DETECT) 05/25/23 20:05 M. pneumoniae (PCR) Not detected (NOT DETECT) 05/25/23 20:05 Parainfluenza 1 (PCR) Not detected (NOT DETECT) 05/25/23 20:05 Parainfluenza 2 (PCR) Not detected (NOT DETECT) 05/25/23 20:05 Parainfluenza 3 (PCR) Not detected (NOT DETECT) 05/25/23 20:05 Parainfluenza 4 (PCR) Not detected (NOT DETECT) 05/25/23 20:05 RSV Type A (PCR) Not detected (NOT DETECT) 05/25/23 20:05 RSV Type B (PCR) Not detected (NOT DETECT) 05/25/23 20:05 Entero/Rhino (PCR) Not detected (NOT DETECT) 05/25/23 20:05 Rickettsia IgG Ab Not detected 05/25/23 14:50 Rickettsia IgM Ab Not detected 05/25/23 14:50 SARS-CoV-2 (PCR) Not detected (NOT DETECT) 05/25/23 20:05 Vitals Last Vital Signs Temp 98.5 F 06/02/23 13:22 Pulse 72 06/02/23 13:22 Resp 24 H 06/02/23 13:22 BP 109/71 06/02/23 13:22 Pulse Ox 92 06/02/23 13:22 O2 Del Method Room Air 06/02/23 12:00 O2 Flow Rate 1 05/30/23 14:00 Discharge Plan Discharge Patient Disposition: Home Condition: Stable Prescriptions: New diltiazem HCl 240 mg Capsule,Extended Release 24hr 240 mg PO DAILY 30 Days Qty: 30 2RF metoprolol succinate 100 mg Tablet Extended Release 24 Hr 100 mg PO Q12H 30 Days Qty: 60 3RF flecainide 100 mg Tablet 50 mg PO BID 30 Days Qty: 60 3RF Continued simvastatin 20 mg tablet 20 mg PO .QHS albuterol sulfate 90 mcg/actuation aero powdr breath act w/sensor 2 inh inhalation QID Eliquis 5 mg tablet 5 mg PO BID fluticasone propionate 110 mcg/actuation HFA aerosol inhaler 2 puff inhalation BID pantoprazole 40 mg tablet,delayed release (DR/EC) 40 mg PO DAILY loratadine 10 mg tablet 10 mg PO DAILY Qty: 30 0RF trazodone 100 mg tablet 100 mg PO .q hs PRN (Reason: insomnia) Qty: 30 3RF Rx Instructions: Take one tablet daily at bedtime, if needed for insomnia olanzapine 20 mg tablet 20 mg PO .q hs Qty: 30 3RF Rx Instructions: Take one tablet daily at bedtime with the 10 mg dose olanzapine [Zyprexa] 10 mg tablet 10 mg PO .qhs Qty: 30 3RF Rx Instructions: take one tablet by mouth daily at bedtime, with the 20mg tablet eszopiclone [Lunesta] 1 mg tablet 1 mg PO .HS PRN (Reason: insomnia) Qty: 30 2RF Rx Instructions: take one tablet by mouth, at bedtime, if needed for insomnia sumatriptan succinate 100 mg tablet 100 mg PO Q2H PRN (Reason: migraine headache) Qty: 9 4RF Rx Instructions: do not exceed 2 doses per 24 hrs zonisamide 100 mg capsule See Rx Instructions .ROUTE .COMPLEX Qty: 360 0RF Dose Instruction: TAKE 4 CAPSULES BY MOUTH DAILY Rx Instructions: TAKE 4 CAPSULES BY MOUTH DAILY divalproex 500 mg tablet,delayed release (DR/EC) See Rx Instructions .ROUTE .COMPLEX Qty: 270 0RF Dose Instruction: TAKE 3 TABLETS BY MOUTH DAILY AT BEDTIME NEED APPOINTMENT FOR FURTHER REFILLS Rx Instructions: TAKE 3 TABLETS BY MOUTH DAILY AT BEDTIME NEED APPOINTMENT FOR FURTHER REFILLS primidone 50 mg tablet See Rx Instructions .ROUTE .COMPLEX Qty: 180 0RF Dose Instruction: TAKE ONE TABLET BY MOUTH IN THE MORNING AND ONE TABLET BY MOUTH AT NOON. Rx Instructions: TAKE ONE TABLET BY MOUTH IN THE MORNING AND ONE TABLET BY MOUTH AT NOON. Discontinued metoprolol tartrate 50 mg tablet 50 mg PO BID telmisartan [Micardis] 40 mg tablet 40 mg PO DAILY Qty: 20 0RF Discharge Orders: Discharge Order (Routine); Ordered 06/02/23 Ordered By: Travis Prado Other Ambulatory Orders: ECG nonstress test (Routine) Timeframe: 3 Days Facility: [facility] - Location: Respiratory Therapy Ordered By: Travis Prado Referrals: Tony Hassan M.D [Physician] - 06/06/23 2:30 pm Steele,KIRSTEN Lino [Primary Care Provider] - 06/07/23 2:00 pm () Patient Instructions: Metoprolol (By mouth) (Lopressor, Toprol XL), Diltiazem (By mouth) (Cardizem, Cardizem CD, Cardizem LA, Cardizem SR), Flecainide (By mouth) (Tambocor), A-fib (Atrial Fibrillation) (DC), Opioid Safety Discharge Attestations Time Spent in Discharge Care*: less than 30 min Quality Metrics Clinical Quality Measures [ No reported AMI, CVA or VTE this stay] Coding Level of Care Code Acute Code for Chg Fwd Diagnoses Atrial fibrillation I48.91 CKD (chronic kidney disease) N18.9
== END 2023-06-02 14:00 | disposition home or self-care (01) | DRG 872 ==
LOC: ER 20:05 → MEDSURG 20:41 → CSU 05-28 06:03
PROVIDERS: Internal Medicine; Student in an Organized Health Care Education/Training Program; Admitting Provider Student in an Organized Health Care Education/Training Program; Emergency Provider Family Medicine; PCP Nurse Practitioner Family; Visit Provider Internal Medicine
DX: A41.9 Sepsis, unspecified organism (principal); N17.9 Acute kidney failure, unspecified; E87.20 Acidosis, unspecified; I47.1 Supraventricular tachycardia; Z79.01 Long term (current) use of anticoagulants; E86.0 Dehydration; G40.909 Epilepsy, unspecified, not intractable, without status epilepticus; Z87.891 Personal history of nicotine dependence; G25.0 Essential tremor; F15.11 Other stimulant abuse, in remission; N18.30 Chronic kidney disease, stage 3 unspecified; I12.9 Hypertensive chronic kidney disease with stage 1 through stage 4 chronic kidney disease, or unspecified chronic kidney disease; I48.0 Paroxysmal atrial fibrillation; F31.70 Bipolar disorder, currently in remission, most recent episode unspecified
CPT/HCPCS: 36415; 36416; 71045; 80048; 80053; 80061; 80069; 80306; 80307; 81003; 82436; 82550; 82553; 82570; 82607; 82746; 82962; 83036; 83540; 83550; 83605; 83735; 83880; 84100; 84133; 84145; 84300; 84443; 84484; 85025; 85999; 86618; 86666; 86757; 87040; 87486; 87581; 87633; 93005; 93306; 94640; 96365; 96367; 99285; G0378; J0696; J1885; J2543; J3372; J3490; J7030; J7614; J7626; J7644

== ENCOUNTER → 2023-06-06 14:29 | Outpatient (BNVA) | payer MEDICARE, MEDICAID, SELFPAY | PROVIDERS: PCP Nurse Practitioner Family; Visit Provider Internal Medicine | DX: I48.91 Unspecified atrial fibrillation (principal); I12.9 Hypertensive chronic kidney disease with stage 1 through stage 4 chronic kidney disease, or unspecified chronic kidney disease; N18.9 Chronic kidney disease, unspecified; Z79.01 Long term (current) use of anticoagulants | CPT/HCPCS: 99204 ==

== ENCOUNTER → 2023-06-13 08:54 | Outpatient (BNVA) | payer MEDICARE, MEDICAID, SELFPAY | PROVIDERS: PCP Nurse Practitioner Family; Visit Provider Specialist | DX: G40.309 Generalized idiopathic epilepsy and epileptic syndromes, not intractable, without status epilepticus; G25.0 Essential tremor; E66.9 Obesity, unspecified; Z68.36 Body mass index [BMI] 36.0-36.9, adult | CPT/HCPCS: 99213 ==

== ENCOUNTER → 2023-10-23 16:00 | Outpatient (BNVA) | payer MEDICARE, MEDICAID, OTHER, SELFPAY | PROVIDERS: PCP Nurse Practitioner Family; Visit Provider Nurse Practitioner Psychiatric/Mental Health | DX: Z51.81 Encounter for therapeutic drug level monitoring (principal) | CPT/HCPCS: 80164 ==

== ENCOUNTER → 2024-02-05 13:51 | Outpatient (BNVA) | payer MEDICARE, MEDICAID, SELFPAY | PROVIDERS: PCP Nurse Practitioner Family; Visit Provider Internal Medicine | DX: I12.9 Hypertensive chronic kidney disease with stage 1 through stage 4 chronic kidney disease, or unspecified chronic kidney disease (principal); N18.9 Chronic kidney disease, unspecified; I48.91 Unspecified atrial fibrillation; Z79.01 Long term (current) use of anticoagulants | CPT/HCPCS: 99214 ==

== ENCOUNTER → 2024-05-20 09:12 | Outpatient (BNVA) | payer MEDICARE, MEDICAID, OTHER, SELFPAY | PROVIDERS: PCP Nurse Practitioner Family; Visit Provider Nurse Practitioner Psychiatric/Mental Health | DX: Z79.899 Other long term (current) drug therapy (principal); F31.74 Bipolar disorder, in full remission, most recent episode manic; G40.309 Generalized idiopathic epilepsy and epileptic syndromes, not intractable, without status epilepticus; G25.0 Essential tremor | CPT/HCPCS: 80053; 80061; 83036 ==

== ENCOUNTER → 2024-06-12 08:24 | Outpatient (BNVA) | payer MEDICARE, MEDICAID, SELFPAY | PROVIDERS: PCP Nurse Practitioner Family; Visit Provider Specialist | DX: G40.309 Generalized idiopathic epilepsy and epileptic syndromes, not intractable, without status epilepticus; G25.0 Essential tremor | CPT/HCPCS: 99213 ==

== ENCOUNTER → 2024-08-20 09:22 | Outpatient (BNVA) | payer MEDICARE, MEDICAID, OTHER, SELFPAY | PROVIDERS: PCP Nurse Practitioner Family; Visit Provider Nurse Practitioner Psychiatric/Mental Health | DX: Z79.899 Other long term (current) drug therapy (principal) | CPT/HCPCS: 80164 ==

== ENCOUNTER → 2025-02-03 12:53 | Outpatient (BNVA) | payer MEDICARE, MEDICAID, SELFPAY | PROVIDERS: PCP Nurse Practitioner Family; Visit Provider Internal Medicine | DX: I10 Essential (primary) hypertension (principal); N18.9 Chronic kidney disease, unspecified; I48.91 Unspecified atrial fibrillation | CPT/HCPCS: 99214 ==

== ENCOUNTER → 2025-04-24 08:46 | Outpatient (BNVA) | payer MEDICARE, MEDICAID, OTHER, SELFPAY | PROVIDERS: PCP Nurse Practitioner Family; Visit Provider Nurse Practitioner | DX: J02.9 Acute pharyngitis, unspecified (principal) | CPT/HCPCS: 87880 ==

== ENCOUNTER → 2025-06-09 10:29 | Outpatient (BNVA) | payer MEDICARE, MEDICAID, SELFPAY | PROVIDERS: PCP Nurse Practitioner Family; Visit Provider Specialist | DX: G40.309 Generalized idiopathic epilepsy and epileptic syndromes, not intractable, without status epilepticus (principal); G25.0 Essential tremor | CPT/HCPCS: 99213 ==

== ENCOUNTER → 2025-07-21 13:37 | Outpatient (BNVA) | payer MEDICARE, MEDICAID, OTHER, SELFPAY | PROVIDERS: PCP Nurse Practitioner Family; Visit Provider Nurse Practitioner Psychiatric/Mental Health | DX: Z51.81 Encounter for therapeutic drug level monitoring (principal); Z79.899 Other long term (current) drug therapy | CPT/HCPCS: 80053; 80061; 80164; 83036 ==

== ENCOUNTER → 2025-11-03 13:33 | Outpatient (BNVA) | payer MEDICARE, MEDICAID, SELFPAY | PROVIDERS: PCP Nurse Practitioner Family; Visit Provider Internal Medicine | DX: I48.91 Unspecified atrial fibrillation (principal); Z79.01 Long term (current) use of anticoagulants; I12.9 Hypertensive chronic kidney disease with stage 1 through stage 4 chronic kidney disease, or unspecified chronic kidney disease; N18.9 Chronic kidney disease, unspecified; Z87.891 Personal history of nicotine dependence | CPT/HCPCS: 99214 ==